=== PATIENT | female | born 1990 | race Caucasian/White ===

== ENCOUNTER 2018-04-06 15:02 | Emergency (ER) | payer SELFPAY ==
--- NOTE | 2018-04-06 15:56 | RAD REPORT ---
EXAM DESCRIPTION: Daniela Pandya (2 Views)04/06/2018 3:42 pm CLINICAL HISTORY: Cough COMPARISON: 2016 FINDINGS: The lungs appear clear of acute infiltrate. The heart is normal size IMPRESSION: No acute abnormalities displayed
[2018-04-06] MEDS ORDERED: AZITHROMYCIN 250 MG TAB ONE ×2 (16:07→16:09)
[2018-04-06] MEDS ORDERED: LIDOCAINE 1% MPF 2 ML AMPULE ONE (16:07)
[2018-04-06] MEDS ORDERED: CEFTRIAXONE 1000 MG/VIAL ONE (16:07)
--- NOTE | 2018-04-06 16:07 | ER ---
Nurse's Notes [facility] Name: India Pyle Age: 27 yrs Sex: Female : 1990 Arrival Date: 04/06/2018 Time: 15:06 Bed 28 Private MD: None, None Diagnosis: Cough;Bronchitis, not specified as acute or chronic;Fever, unspecified Presentation: 04/06 15:09 Presenting complaint: Patient states: cough x 2 days ago. Pt states "I started coughing aa5 up bloody mucus today". Transition of care: patient was not received from another setting of care. Onset of symptoms was March 2018. Risk Assessment: Do you want to hurt yourself or someone else? Patient reports no desire to harm self or others. Initial Sepsis Screen: Does the patient meet any 2 criteria? No. Patient's initial sepsis screen is negative. Does the patient have a suspected source of infection? No. Patient's initial sepsis screen is negative. Care prior to arrival: None. 15:09 Method Of Arrival: Ambulatory aa5 15:09 Acuity: FAVIO 3 aa5 Triage Assessment: 15:15 General: Appears in no apparent distress. Behavior is calm, cooperative, appropriate kr2 for age. 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 - Social history:: Smoking status: Patient/guardian denies using tobacco. - Ebola Screening: : No symptoms or risks identified at this time. Screenin:11 Tuberculosis screening: Never had TB. Possible symptoms: recent night sweats, recent aa5 bloody sputum. 15:15 Abuse screen: Denies threats or abuse. Denies injuries from another. Nutritional kr2 screening: No deficits noted. Fall Risk None identified. Assessment: 15:15 General: Appears in no apparent distress. uncomfortable, well groomed, well developed, kr2 well nourished, Behavior is calm, cooperative, appropriate for age. Pain: Denies pain. Neuro: Level of Consciousness is awake, alert, obeys commands, Oriented to person, place, time, situation. Cardiovascular: Capillary refill < 3 seconds in bilateral fingers Patient's skin is warm and dry. Rhythm is regular. Respiratory: Reports cough that is productive, since 3 days ago Airway is patent Respiratory effort is even, unlabored, Respiratory pattern is regular, symmetrical, Breath sounds are clear bilaterally. GI: Abdomen is flat, non-distended, Bowel sounds present X 4 quads. Abd is soft and non tender X 4 quads. : Denies burning with urination. EENT: Nares are clear bilaterally Oral mucosa is moist. Reports nasal congestion nasal discharge. Derm: Skin is intact, is healthy with good turgor, Skin is pink, warm \\T\\ dry. Musculoskeletal: Circulation, motion, and sensation intact. 16:15 Reassessment: Patient appears in no apparent distress at this time. Patient and/or kr2 family updated on plan of care and expected duration. Pain level reassessed. Patient is alert, oriented x 3, equal unlabored respirations, skin warm/dry/pink. Patient denies pain at this time. Vital Signs: 15:10 BP 107 / 79; Pulse 97; Resp 18 S; Temp 99.5(O); Pulse Ox 98% on R/A; Weight 67.13 kg aa5 (R); Height 5 ft. 0 in. (152.40 cm) (R); Pain 0/10; 16:00 BP 110 / 80; Pulse 90; Resp 17; Pulse Ox 100% ; kr2 15:10 Body Mass Index 28.90 (67.13 kg, 152.40 cm) aa5 ED Course: 15:06 Patient arrived in ED. sb2 15:06 None, None is Private Physician. sb2 15:09 Arm band placed on. aa5 15:10 Triage completed. aa5 15:15 Patient has correct armband on for positive identification. Bed in low position. Call kr2 light in reach. Side rails up X 1. Adult w/ patient. Pulse ox on. NIBP on. Door closed. Pillow given. Head of bed elevated. 15:27 Julian Storey MD is Attending Physician. oliver 15:38 Patient moved to radiology via wheelchair. sg4 15:40 X-ray completed. Patient tolerated procedure well. sg4 15:41 Chest Pa And Lat (2 Views) XRAY In Process Unspecified. EDMS 15:42 Patient taken to an exam room, Patient moved back from radiology. sg4 16:20 Denia Prasad, RN is Primary Nurse. kr2 16:20 No provider procedures requiring assistance completed. Patient did not have IV access kr2 during this emergency room visit. Administered Medications: 16:07 Drug: Zithromax 500 mg Route: PO; kr2 16:20 Follow up: Response: Medication administered at discharge. kr2 16:11 Drug: Rocephin (cefTRIAXone) 1 grams Route: IM; Site: left gluteus; kr2 16:25 Follow up: Response: No adverse reaction kr2 Outcome: 15:15 Discharged to home ambulatory, with family. kr2 15:15 Condition: good 15:15 Discharge instructions given to patient, Instructed on discharge instructions, follow up and referral plans. medication usage, Demonstrated understanding of instructions, follow-up care, medications, Prescriptions given X 2. 16:06 Discharge ordered by . oliver 16:25 Patient left the ED. kr2 Signatures: Dispatcher [employer] EDMS Julian Storey MD MD cha Calderon, Audri, RN RN aa5 Denia Prasad, RN RN kr2 Swathi Becker2 Mindy Sherwood sg4
--- NOTE | 2018-04-06 16:07 | EDPHYS ---
Physician Documentation [facility] Name: India Pyle Age: 27 yrs Sex: Female : 1990 Arrival Date: 04/06/2018 Time: 15:06 Bed 28 Private MD: None, None ED Physician Julian Storey HPI: 04/06 16:00 This 27 yrs old Female presents to ER via Ambulatory with complaints of oliver BLOODY MUCOUS. 16:00 The patient or guardian reports cough, described as mild. Onset: The symptoms/episode oliver began/occurred 3 day(s) ago. Severity of symptoms: At their worst the symptoms were mild, in the emergency department the symptoms are unchanged. Modifying factors: The symptoms are alleviated by. Associated signs and symptoms: The patient has no apparent associated signs or symptoms. The patient has experienced similar episodes in the past, a few times. 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 - Social history:: Smoking status: Patient/guardian denies using tobacco. - Ebola Screening: : No symptoms or risks identified at this time. ROS: 16:01 Constitutional: Negative for fever, chills, and weight loss, Eyes: Negative for injury, oliver pain, redness, and discharge, ENT: Negative for injury, pain, and discharge, Neck: Negative for injury, pain, and swelling, Cardiovascular: Negative for chest pain, palpitations, and edema, Abdomen/GI: Negative for abdominal pain, nausea, vomiting, diarrhea, and constipation, Back: Negative for injury and pain, : Negative for injury, bleeding, discharge, and swelling, MS/Extremity: Negative for injury and deformity, Skin: Negative for injury, rash, and discoloration, Neuro: Negative for headache, weakness, numbness, tingling, and seizure, Psych: Negative for depression, anxiety, suicide ideation, homicidal ideation, and hallucinations, Allergy/Immunology: Negative for hives, rash, and allergies, Endocrine: Negative for neck swelling, polydipsia, polyuria, polyphagia, and marked weight changes, Hematologic/Lymphatic: Negative for swollen nodes, abnormal bleeding, and unusual bruising. 16:01 Respiratory: Positive for cough, with rust-colored sputum. Exam: 16:01 Constitutional: This is a well developed, well nourished patient who is awake, alert, oliver and in no acute distress. Head/Face: Normocephalic, atraumatic. Eyes: Pupils equal round and reactive to light, extra-ocular motions intact. Lids and lashes normal. Conjunctiva and sclera are non-icteric and not injected. Cornea within normal limits. Periorbital areas with no swelling, redness, or edema. ENT: Nares patent. No nasal discharge, no septal abnormalities noted. Tympanic membranes are normal and external auditory canals are clear. Oropharynx with no redness, swelling, or masses, exudates, or evidence of obstruction, uvula midline. Mucous membranes moist. Neck: Trachea midline, no thyromegaly or masses palpated, and no cervical lymphadenopathy. Supple, full range of motion without nuchal rigidity, or vertebral point tenderness. No Meningismus. Chest/axilla: Normal chest wall appearance and motion. Nontender with no deformity. No lesions are appreciated. Cardiovascular: Regular rate and rhythm with a normal S1 and S2. No gallops, murmurs, or rubs. Normal PMI, no JVD. No pulse deficits. Abdomen/GI: Soft, non-tender, with normal bowel sounds. No distension or tympany. No guarding or rebound. No evidence of tenderness throughout. Back: No spinal tenderness. No costovertebral tenderness. Full range of motion. Female : Normal external genitalia. Skin: Warm, dry with normal turgor. Normal color with no rashes, no lesions, and no evidence of cellulitis. MS/ Extremity: Pulses equal, no cyanosis. Neurovascular intact. Full, normal range of motion. Neuro: Awake and alert, GCS 15, oriented to person, place, time, and situation. Cranial nerves II-XII grossly intact. Motor strength 5/5 in all extremities. Sensory grossly intact. Cerebellar exam normal. Normal gait. Psych: Awake, alert, with orientation to person, place and time. Behavior, mood, and affect are within normal limits. 16:01 Respiratory: the patient does not display signs of respiratory distress, Respirations: normal, Breath sounds: rhonchi, that are mild, are scattered. Vital Signs: 15:10 BP 107 / 79; Pulse 97; Resp 18 S; Temp 99.5(O); Pulse Ox 98% on R/A; Weight 67.13 kg aa5 (R); Height 5 ft. 0 in. (152.40 cm) (R); Pain 0/10; 16:00 BP 110 / 80; Pulse 90; Resp 17; Pulse Ox 100% ; kr2 15:10 Body Mass Index 28.90 (67.13 kg, 152.40 cm) aa5 MDM: 15:27 Patient medically screened. [facility] 16:01 Data reviewed: vital signs, nurses notes, radiologic studies, plain films. [facility] 04/06 15:28 Order name: Influenza Screen (a \T\ B) [facility] 04/06 15:27 Order name: Chest Pa And Lat (2 Views) XRAY [facility] Administered Medications: 16:07 Drug: Zithromax 500 mg Route: PO; kr2 16:20 Follow up: Response: Medication administered at discharge. 2 16:11 Drug: Rocephin (cefTRIAXone) 1 grams Route: IM; Site: left gluteus; kr2 16:25 Follow up: Response: No adverse reaction 2 Disposition: 04/06/18 16:06 Discharged to Home. Impression: Cough, Bronchitis, not specified as acute or chronic, Fever, unspecified. - Condition is Stable. - Discharge Instructions: Acute Bronchitis, Adult, Fever, Adult, Upper Respiratory Infection, Adult, [id number], Cough, Adult, [id number]-Frsh, Cough, Adult. - Prescriptions for Bromfed DM 2- 30-10 mg/5 mL Oral syrup - take 10 milliliter by ORAL route every 6 hours; 160 milliliter. Zithromax 500 mg Oral Tablet - take 1 tablet by ORAL route once daily for 4 days; 4 tablet. - Medication Reconciliation Form, Thank You Letter, Antibiotic Education, Prescription Opioid Use form. - Follow up: Private Physician; When: 2 - 3 days; Reason: Recheck today's complaints, Continuance of care, Re-evaluation by your physician. - Problem is new. - Symptoms have improved. Signatures: Dispatcher [employer] Julian Mujica MD MD cha Calderon, Audri RN RN aa5 Denia Prasad RN RN kr2 Corrections: (The following items were deleted from the chart) 16:25 16:06 04/06/2018 16:06 Discharged to Home. Impression: Cough; Bronchitis, not specified kr2 as acute or chronic; Fever, unspecified. Condition is Stable. Forms are Medication Reconciliation Form, Thank You Letter, Antibiotic Education, Prescription Opioid Use. Follow up: Private Physician; When: 2 - 3 days; Reason: Recheck today's complaints, Continuance of care, Re-evaluation by your physician. Problem is new. Symptoms have improved. oliver
== END 2018-04-06 16:25 | disposition home or self-care (01) ==
LOC: ER 15:02
DX: J40 Bronchitis, not specified as acute or chronic (principal)
CPT/HCPCS: 71046; 87804; 96372; 99284; J2001

== ENCOUNTER 2018-05-30 09:54 | Emergency (ER) | payer SELFPAY ==
--- NOTE | 2018-05-30 12:20 | RAD REPORT ---
EXAM DESCRIPTION: RAD - C Spine Ap/Lat - 05/30/2018 12:15 pm CLINICAL HISTORY: PAIN Radiculopathy COMPARISON: No comparisons FINDINGS: Cervical bodies are normal in height and alignment.No fracture or acute bony process seen. Disc thinning with small endplate osteophytes present in the lower cervical levels. No prevertebral soft tissue thickening or other suspicious soft tissue finding. IMPRESSION: Mild lower cervical spondylosis.
--- NOTE | 2018-05-30 12:46 | ER ---
Nurse's Notes [facility] Name: India Pyle Age: 27 yrs Sex: Female : 1990 Arrival Date: 05/30/2018 Time: 09:57 Bed 12 Private MD: None, None Diagnosis: Strain of muscle, fascia and tendon at neck level Presentation: 05/30 10:04 Presenting complaint: Patient states: i can barely move my neck started 2 days ago and hj its getting worse, its hard to swallow too; denies fever and chills; denies sore throat; denies trauma to the area;. Transition of care: patient was not received from another setting of care. Onset of symptoms was May 30, 2018. Risk Assessment: Do you want to hurt yourself or someone else? Patient reports no desire to harm self or others. Initial Sepsis Screen: Does the patient meet any 2 criteria? No. Patient's initial sepsis screen is negative. Does the patient have a suspected source of infection? No. Patient's initial sepsis screen is negative. Care prior to arrival: None. 10:04 Method Of Arrival: Ambulatory 10:04 Acuity: FAVIO 4 Triage Assessment: 10:06 General: Appears in no apparent distress. uncomfortable, Behavior is calm, cooperative, hj appropriate for age. Pain: Complains of pain in neck. 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 - Social history:: Smoking status: Patient/guardian denies using tobacco, Patient/guardian denies using alcohol. - Ebola Screening: : Patient negative for fever greater than or equal to 101.5 degrees Fahrenheit, and additional compatible Ebola Virus Disease symptoms Patient denies exposure to infectious person Patient denies travel to an Ebola-affected area in the 21 days before illness onset. Screenin:06 Abuse screen: Denies threats or abuse. Denies injuries from another. Nutritional hj screening: No deficits noted. Tuberculosis screening: No symptoms or risk factors identified. Fall Risk None identified. Assessment: 11:34 General: Appears in no apparent distress. Behavior is calm, cooperative. Pain: iw Complains of pain in neck. Neuro: Level of Consciousness is awake, alert, obeys commands, Oriented to person, place, time, Moves all extremities. Cardiovascular: Vital Signs: 10:06 BP 119 / 96; Pulse 75; Resp 18; Temp 98.1(O); Pulse Ox 99% on R/A; Weight 65.77 kg; hj Height 5 ft. 0 in. (152.40 cm); Pain 9/10; 10:06 Body Mass Index 28.32 (65.77 kg, 152.40 cm) hj ED Course: 09:57 Patient arrived in ED. mr 09:57 None, None is Private Physician. mr 10:05 Triage completed. hj 10:06 Arm band placed on left wrist. hj 10:08 Patient has correct armband on for positive identification. Bed in low position. Call hj light in reach. Side rails up X 1. Adult w/ patient. 11:15 Julian Rojas PA is PHCP. cp 11:16 Kareem Webb MD is Attending Physician. cp 11:33 Gracie Fuchs, RN is Primary Nurse. iw 12:19 XRAY C Spine Ap/lat: neck pain In Process Unspecified. EDMS 13:19 No provider procedures requiring assistance completed. Patient did not have IV access iw during this emergency room visit. Administered Medications: 13:00 Drug: TORadol 60 mg Route: IM; Site: right deltoid; iw Outcome: 12:46 Discharge ordered by MD. cp 13:19 Discharged to home ambulatory. iw 13:19 Condition: good 13:19 Discharge instructions given to patient, Instructed on discharge instructions, follow up and referral plans. medication usage, Demonstrated understanding of instructions, follow-up care, medications, Prescriptions given X 2. 13:20 Patient left the ED. iw Signatures: Dispatcher [employer] EDRI Karla Burgess mr Gracie Fuchs, RN RN Chito Li RN RN Julian Rojas PA PA cp Corrections: (The following items were deleted from the chart) 10:08 10:06 Pulse 75bpm; Resp 18bpm; Pulse Ox 99% RA; Temp 98.1F Oral; 65.77 kg; Height 5 ft. hj 0 in.; BMI: 28.3; Pain 9/10; hj
--- NOTE | 2018-05-30 12:46 | EDPHYS ---
Physician Documentation [facility] Name: India Pyle Age: 27 yrs Sex: Female : 1990 Arrival Date: 05/30/2018 Time: 09:57 Bed 12 Private MD: None, None ED Physician Kareem Webb HPI: 05/30 11:55 This 27 yrs old Female presents to ER via Ambulatory with complaints of Stiff cp Neck, Throat pain. 11:55 The patient or guardian complains of pain, that is acute. cp 11:55 The symptoms are located right upper posterior neck area. cp 11:55 Onset: The symptoms/episode began/occurred 2 day(s) ago. cp 11:55 Context: The neck injury/problem resulted from from unknown cause. Associated signs and cp symptoms: Pertinent negatives: fever, headache, numbness, tingling, weakness. The pain does not radiate. Modifying factors: the symptoms are aggravated by movement. 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 - Social history:: Smoking status: Patient/guardian denies using tobacco, Patient/guardian denies using alcohol. - Ebola Screening: : Patient negative for fever greater than or equal to 101.5 degrees Fahrenheit, and additional compatible Ebola Virus Disease symptoms Patient denies exposure to infectious person Patient denies travel to an Ebola-affected area in the 21 days before illness onset. ROS: 12:00 Constitutional: Negative for body aches, chills, fever, poor PO intake. cp 12:00 Eyes: Negative for injury, pain, redness, and discharge. cp 12:00 Neck: Positive for pain with movement, Negative for injury or acute deformity, swelling, bony tenderness. 12:00 Cardiovascular: Negative for chest pain, edema, palpitations. 12:00 Abdomen/GI: Negative for abdominal pain, nausea, vomiting, and diarrhea. 12:00 Skin: Negative for cellulitis, rash. 12:00 Neuro: Negative for dizziness, headache, numbness, tingling, weakness. 12:00 All other systems are negative. Exam: 12:10 Constitutional: The patient appears in no acute distress, alert, awake, non-toxic, well cp developed, well nourished. 12:10 Head/Face: Normocephalic, atraumatic. cp 12:10 Eyes: Periorbital structures: appear normal, Conjunctiva: normal, no exudate, no injection, Sclera: no appreciated abnormality, Lids and lashes: appear normal, bilaterally. 12:10 ENT: External ear(s): are unremarkable, Ear canal(s): are normal, clear, TM's: bulging, is not appreciated, bilaterally, dullness, bilaterally, erythema, is not appreciated, bilaterally, Nose: is normal, Mouth: is normal, Posterior pharynx: is normal, airway is patent, no erythema, no exudate, Tonsils: are normal in appearance, erythema, is not appreciated, exudate, is not appreciated, Voice: is normal. 12:10 Neck: External neck: tenderness, that is mild, of the occiput, ROM/movement: pain, that is mild, with rotation to the left, limited range of motion, that is mild, nuchal rigidity, is not appreciated, Lymph nodes: no appreciated lymphadenopathy. 12:10 Chest/axilla: Inspection: normal, Palpation: is normal, no crepitus, no tenderness. 12:10 Cardiovascular: Rate: normal, Rhythm: regular. 12:10 Respiratory: the patient does not display signs of respiratory distress, Respirations: normal, no use of accessory muscles, no retractions, no splinting, no tachypnea, labored breathing, is not present, Breath sounds: are clear throughout, no decreased breath sounds, no stridor, no wheezing. 12:10 Skin: cellulitis, is not appreciated, no rash present. 12:10 Neuro: Orientation: to person, place \T\ time. Mentation: is normal, Motor: moves all fours, strength is normal, Sensation: is normal. Vital Signs: 10:06 BP 119 / 96; Pulse 75; Resp 18; Temp 98.1(O); Pulse Ox 99% on R/A; Weight 65.77 kg; hj Height 5 ft. 0 in. (152.40 cm); Pain 9/10; 10:06 Body Mass Index 28.32 (65.77 kg, 152.40 cm) MDM: 11:16 Patient medically screened. cp 12:40 Differential diagnosis: Cervical Raiculopathy Cervical Spondylosis cervical strain, cp Spinal Cord Compression Spondylolisthesis Spondylosis subluxation, torticollis. 12:45 Data reviewed: vital signs, nurses notes, radiologic studies, plain films. cp 12:45 Test interpretation: by ED physician or midlevel provider: plain radiologic studies. cp Counseling: I had a detailed discussion with the patient and/or guardian regarding: the historical points, exam findings, and any diagnostic results supporting the discharge/admit diagnosis, radiology results, to return to the emergency department if symptoms worsen or persist or if there are any questions or concerns that arise at home. 05/30 11:49 Order name: XRAY C Spine Ap/lat: neck pain; Complete Time: 12:35 cp 05/30 11:49 Order name: Urine Test (obtain specimen); Complete Time: 13:02 cp 05/30 11:49 Order name: Urine Dipstick-Ancillary (obtain specimen); Complete Time: 13:02 cp Administered Medications: 13:00 Drug: TORadol 60 mg Route: IM; Site: right deltoid; iw Disposition: 15:10 Co-signature as Attending Physician, Kareem Webb MD. Disposition: 05/30/18 12:46 Discharged to Home. Impression: Strain of muscle, fascia and tendon at neck level. - Condition is Stable. - Discharge Instructions: Cervical Sprain. - Prescriptions for Cyclobenzaprine 10 mg Oral Tablet - take 1 tablet by ORAL route every 8 hours As needed no driving while taking medication; 20 tablet. Diclofenac Sodium 75 mg Oral Tablet, Delayed Release (E.C.) - take 1 tablet by ORAL route 2 times per day; 20 tablet. - Work release form, Medication Reconciliation Form, Thank You Letter, Antibiotic Education, Prescription Opioid Use form. - Follow up: Private Physician; When: 2 - 3 days; Reason: Recheck today's complaints. - Problem is new. - Symptoms have improved. Signatures: Dispatcher [employer] Gracie Roca RN RN iw Joaquin, Henry, RN RN hj Page, Corey, PA PA cp Starr, Gregory, MD MD Corrections: (The following items were deleted from the chart) 13:20 12:46 05/30/2018 12:46 Discharged to Home. Impression: Strain of muscle, fascia and iw tendon at neck level. Condition is Stable. Forms are Medication Reconciliation Form, Thank You Letter, Antibiotic Education, Prescription Opioid Use. Follow up: Private Physician; When: 2 - 3 days; Reason: Recheck today's complaints. Problem is new. Symptoms have improved. cp 05/31 13:05/30 13:05 Data reviewed: vital signs, nurses notes, radiologic studies, plain films, cp cp 05/31 13:11 05/30 13:05 Test interpretation: by ED physician or midlevel provider: plain radiologic cp studies, cp
[2018-05-30] MEDS ORDERED: KETOROLAC 30 MG/ML INJ ONE (13:09)
== END 2018-05-30 13:20 | disposition home or self-care (01) ==
LOC: ER 09:54
DX: S16.1XXA Strain of muscle, fascia and tendon at neck level, initial encounter (principal); F41.9 Anxiety disorder, unspecified; Z88.5 Allergy status to narcotic agent
CPT/HCPCS: 72040; 96372; 99283

== ENCOUNTER 2019-03-28 13:57 | Emergency (ER) | payer SELFPAY ==
--- OUTSIDE RECORDS SUMMARY | 2019-03-28 13:59 | XMS REPORT ---
:1990 Author Organization [facility] Address [address] [place] [address] [place] [id number] Care Team Providers Name Role Phone Unavailable Unavailable Unavailable Payers Payer Name Policy Type Policy Number Effective Date Expiration Date Problems This patient has no known problems. Allergies, Adverse Reactions, Alerts This patient has no known allergies or adverse reactions. Medications This patient has no known medications.
[2019-03-28] MEDS ORDERED: HYDROCODONE/CHLORPHEN 5 ML/OSYR ONE (14:37)
--- NOTE | 2019-03-28 15:09 | ER ---
Nurse's Notes [facility] Name: India Pyle Age: 28 yrs Sex: Female : 1990 Arrival Date: 03/28/2019 Time: 13:58 Bed 19 Private MD: Diagnosis: Acute bronchitis Presentation: 03/28 14:08 Presenting complaint: Patient states: Coughing, fever, body aches, and BARILLAS since jl7 yesterday. Transition of care: patient was not received from another setting of care. Onset of symptoms was March 27, 2019. Risk Assessment: Do you want to hurt yourself or someone else? Patient reports no desire to harm self or others. Initial Sepsis Screen: Does the patient meet any 2 criteria? HR > 90 bpm. Does the patient have a suspected source of infection? No. Patient's initial sepsis screen is negative. Care prior to arrival: None. 14:08 Method Of Arrival: Ambulatory [facility] 14:08 Acuity: FAVIO 4 jl7 Triage Assessment: 14:09 General: Appears in no apparent distress. uncomfortable, ill, Behavior is calm, jl7 cooperative, appropriate for age. Pain: Complains of pain in BARILLAS Pain currently is 5 out of 10 on a pain scale. 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 - Social history:: Smoking status: Patient/guardian denies using tobacco. - Ebola Screening: : No symptoms or risks identified at this time. Screenin:41 Abuse screen: Denies threats or abuse. Denies injuries from another. Nutritional bp screening: No deficits noted. Tuberculosis screening: No symptoms or risk factors identified. Fall Risk None identified. Assessment: 14:10 General: Appears in no apparent distress. comfortable, ill, Behavior is cooperative, bp appropriate for age, anxious. Pain: Complains of pain in THROAT. Neuro: No deficits noted. Cardiovascular: Rhythm is sinus tachycardia. Respiratory: No deficits noted. GI: No signs and/or symptoms were reported involving the gastrointestinal system. : No signs and/or symptoms were reported regarding the genitourinary system. EENT: No deficits noted. Derm: No deficits noted. Musculoskeletal: No deficits noted. 15:56 Reassessment: PT D/C HOME AMBULATORY WITH FAMILY, DX WITH BRONCHITIS. bp Vital Signs: 14:09 BP 118 / 78; Pulse 120; Resp 19 S; Temp 100.7(O); Pulse Ox 96% on R/A; Weight 65.77 kg jl7 (R); Height 5 ft. 0 in. (152.40 cm) (R); Pain 5/10; 15:12 BP 107 / 64; Pulse 106; Resp 18; Temp 100.2(TE); Pulse Ox 97% ; mh5 15:55 BP 100 / 63; Pulse 100; Resp 18; Temp 100.1; Pulse Ox 98% ; bp 14:09 Body Mass Index 28.32 (65.77 kg, 152.40 cm) jl7 ED Course: 13:58 Patient arrived in ED. as 14:09 Triage completed. jl7 14:09 Arm band placed on right wrist. jl7 14:15 Gerard Kaur, RN is Primary Nurse. bp 14:19 Fanta Durbin FNP-C is PHCP. snw 14:19 Julian Storey MD is Attending Physician. snw 14:41 Patient has correct armband on for positive identification. Bed in low position. Call bp light in reach. Side rails up X2. Adult w/ patient. 15:56 No provider procedures requiring assistance completed. Patient did not have IV access bp during this emergency room visit. Administered Medications: 14:35 Drug: Tussionex Pennkinetic ER 5 ml Route: PO; bp 15:44 Follow up: Response: Marked relief of symptoms bp 15:30 Drug: Zithromax 500 mg Route: PO; bp 15:45 Follow up: Response: No adverse reaction bp Outcome: 15:08 Discharge ordered by . snw 15:56 Discharged to home ambulatory, with family. bp 15:56 Condition: stable 15:56 Discharge instructions given to patient, Instructed on discharge instructions, follow up and referral plans. medication usage, Demonstrated understanding of instructions, follow-up care, medications, Prescriptions given X 4. 15:57 Patient left the ED. bp Signatures: Fanta Durbin FNP-C PATIENT REPRESENTATIVE-Csnw Yamileth Lanier Maria 5 Latrice Negron, RN RN jl7 Gerard Kaur RN RN bp
--- NOTE | 2019-03-28 15:09 | EDPHYS ---
Physician Documentation [facility] Name: India Pyle Age: 28 yrs Sex: Female : 1990 Arrival Date: 03/28/2019 Time: 13:58 Bed 19 Private MD: ED Physician Julian Storey HPI: 03/28 14:28 This 28 yrs old Female presents to ER via Ambulatory with complaints of Flu snw Symptoms, InQuicker. 14:28 The patient or guardian reports cough, described as moderate, flu symptoms, snw arthralgias, low-grade fever, myalgias. Onset: The symptoms/episode began/occurred suddenly. Modifying factors: The symptoms are alleviated by nothing. Associated signs and symptoms: Pertinent positives: sore throat, cough, fever, pt states she has had a cough since [place] that has never really gone away. Severity of symptoms: At their worst the symptoms were moderate in the emergency department the symptoms are unchanged. It is unknown whether or not the patient has had similar symptoms in the past. It is unknown whether or not the patient has recently seen a physician. 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 - Social history:: Smoking status: Patient/guardian denies using tobacco. - Ebola Screening: : No symptoms or risks identified at this time. ROS: 14:28 Eyes: Negative for injury, pain, redness, and discharge. snw 14:28 Neck: Negative for injury, pain, and swelling, Cardiovascular: Negative for chest pain, palpitations, and edema. 14:28 Abdomen/GI: Negative for abdominal pain, nausea, vomiting, diarrhea, and constipation, Back: Negative for injury and pain, : Negative for injury, bleeding, discharge, and swelling, MS/Extremity: Negative for injury and deformity, Skin: Negative for injury, rash, and discoloration, Neuro: Negative for headache, weakness, numbness, tingling, and seizure. 14:28 Constitutional: Positive for body aches, fatigue, fever, malaise, poor PO intake. 14:28 ENT: Positive for sore throat, cough, congestion, body aches. 14:28 Respiratory: Positive for cough. Exam: 14:32 Neck: Trachea midline, no thyromegaly or masses palpated, and no cervical snw lymphadenopathy. Supple, full range of motion without nuchal rigidity, or vertebral point tenderness. No Meningismus. Chest/axilla: Normal chest wall appearance and motion. Nontender with no deformity. No lesions are appreciated. 14:32 Abdomen/GI: Soft, non-tender, with normal bowel sounds. No distension or tympany. No guarding or rebound. No evidence of tenderness throughout. Back: No spinal tenderness. No costovertebral tenderness. Full range of motion. Skin: Warm, dry with normal turgor. Normal color with no rashes, no lesions, and no evidence of cellulitis. MS/ Extremity: Pulses equal, no cyanosis. Neurovascular intact. Full, normal range of motion. Neuro: Awake and alert, GCS 15, oriented to person, place, time, and situation. Cranial nerves II-XII grossly intact. Motor strength 5/5 in all extremities. Sensory grossly intact. Cerebellar exam normal. Normal gait. Psych: Awake, alert, with orientation to person, place and time. Behavior, mood, and affect are within normal limits. 14:32 Constitutional: The patient appears alert, awake, febrile. 14:32 Head/face: Exam is negative for 14:32 Eyes: Exam is negative for 14:32 ENT: External ear(s): Ear canal(s): TM's: Nose: Mouth: 14:32 Cardiovascular: Rate: tachycardic, Rhythm: regular, Heart sounds: normal, normal S1and S2. 14:32 Respiratory: the patient does not display signs of respiratory distress, Respirations: normal, shallow respirations, that is moderate, Breath sounds: Respiratory rate: bronchitic cough Vital Signs: 14:09 BP 118 / 78; Pulse 120; Resp 19 S; Temp 100.7(O); Pulse Ox 96% on R/A; Weight 65.77 kg jl7 (R); Height 5 ft. 0 in. (152.40 cm) (R); Pain 5/10; 15:12 BP 107 / 64; Pulse 106; Resp 18; Temp 100.2(TE); Pulse Ox 97% ; mh5 15:55 BP 100 / 63; Pulse 100; Resp 18; Temp 100.1; Pulse Ox 98% ; bp 14:09 Body Mass Index 28.32 (65.77 kg, 152.40 cm) jl7 MDM: 14:19 Patient medically screened. snw 15:09 Data reviewed: vital signs, nurses notes. Data interpreted: Pulse oximetry: on room air snw is 96 %. Interpretation: acceptable. Counseling: I had a detailed discussion with the patient and/or guardian regarding: the historical points, exam findings, and any diagnostic results supporting the discharge/admit diagnosis, lab results, the need for outpatient follow up, to return to the emergency department if symptoms worsen or persist or if there are any questions or concerns that arise at home. Special discussion: Based on the history and exam findings, there is no indication for further emergent testing or inpatient evaluation. I discussed with the patient/guardian the need to see the primary care provider for further evaluation of the symptoms. 03/28 14:19 Order name: Flu; Complete Time: 15:07 snw 03/28 14:19 Order name: Strep; Complete Time: 15:07 snw 03/28 14:24 Order name: PO challenge: crackers with cough med; Complete Time: 14:37 snw 03/28 15:06 Order name: Throat Culture EDMS Administered Medications: 14:35 Drug: Tussionex Pennkinetic ER 5 ml Route: PO; bp 15:44 Follow up: Response: Marked relief of symptoms bp 15:30 Drug: Zithromax 500 mg Route: PO; bp 15:45 Follow up: Response: No adverse reaction bp Disposition: 03/29 10:31 Co-signature as Attending Physician, Julian Storey MD I agree with the assessment and oliver plan of care. Disposition: 03/28/19 15:08 Discharged to Home. Impression: Acute bronchitis. - Condition is Stable. - Discharge Instructions: Acute Bronchitis, Adult, Fever, Adult, Cough, Adult, Rehydration, Adult. - Prescriptions for Tessalon Perles 100 mg Oral Capsule - take 1 capsule by ORAL route every 8 hours As needed; 15 capsule. Prednisone 20 mg Oral Tablet - take 2 tablet by ORAL route once daily for 5 days; 10 tablet. Zithromax 500 mg Oral Tablet - take 1 tablet by ORAL route once daily for 5 days; 5 tablet. Mobic 7.5 mg Oral Tablet - take 1 tablet by ORAL route every 12 hours take with food; 20 tablet. - Work release form, Medication Reconciliation Form, Thank You Letter, Antibiotic Education, Prescription Opioid Use form. - Follow up: Emergency Department; When: As needed; Reason: Worsening of condition. Follow up: Private Physician; When: 1 week; Reason: Recheck today's complaints, Continuance of care, Re-evaluation by your physician. Signatures: Dispatcher [employer] EDJulian Dobson, Fanta Gonzalez MD, cha, PROFESSOR OF PRACTICE-C PROFESSOR OF PRACTICE-Csnw Latrice Negron, RN RN jl7 Gerard Kaur RN RN bp Corrections: (The following items were deleted from the chart) 03/28 15:57 15:08 03/28/2019 15:08 Discharged to Home. Impression: Acute bronchitis. Condition is bp Stable. Forms are Medication Reconciliation Form, Thank You Letter, Antibiotic Education, Prescription Opioid Use. Follow up: Emergency Department; When: As needed; Reason: Worsening of condition. Follow up: Private Physician; When: 1 week; Reason: Recheck today's complaints, Continuance of care, Re-evaluation by your physician. snw
[2019-03-28] MEDS ORDERED: AZITHROMYCIN 250 MG TAB ONE (15:39)
[2019-03-28 16:18] VITALS: BP 100/63; TEMP 100.1; O2SAT 98
== END 2019-03-28 15:57 | disposition home or self-care (01) ==
LOC: ER 13:57
DX: J20.9 Acute bronchitis, unspecified (principal); F41.9 Anxiety disorder, unspecified; Z88.5 Allergy status to narcotic agent
CPT/HCPCS: 87070; 87081; 87804; 99284

== ENCOUNTER 2019-04-02 12:37 | Emergency (ER) | payer SELFPAY ==
--- OUTSIDE RECORDS SUMMARY | 2019-04-02 12:40 | XMS REPORT ---
:1990 [facility] [address] [place] [address] Care Team Providers Name Role Phone Unavailable Unavailable Unavailable Payers Payer Name Policy Type Policy Number Effective Date Expiration Date Problems This patient has no known problems. Allergies, Adverse Reactions, Alerts This patient has no known allergies or adverse reactions. Medications This patient has no known medications.
[2019-04-02] MEDS ORDERED: NA CHLORIDE 0.9% 2,000 ML ONE (13:31)
[2019-04-02] MEDS ORDERED: ONDANSETRON 4 MG/2 ML VIAL ONE (13:31)
--- NOTE | 2019-04-02 14:41 | ER ---
Nurse's Notes [facility] Name: India Pyle Age: 28 yrs Sex: Female : 1990 Arrival Date: 04/02/2019 Time: 12:40 Bed 15 Private MD: Diagnosis: Nausea with vomiting, unspecified;Dehydration Presentation: 04/02 12:53 Presenting complaint: Patient states: diagnosed with bronchitis on Friday , not able to iw eat, not getting better, had diarrhea, feels dehydrated and dizzy. Transition of care: patient was not received from another setting of care. Onset of symptoms was April 02, 2019. Risk Assessment: Do you want to hurt yourself or someone else? Patient reports no desire to harm self or others. Initial Sepsis Screen: Does the patient meet any 2 criteria? No. Patient's initial sepsis screen is negative. Does the patient have a suspected source of infection? No. Patient's initial sepsis screen is negative. Care prior to arrival: None. 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 - Social history:: Smoking status: Patient/guardian denies using tobacco. - Ebola Screening: : Patient negative for fever greater than or equal to 101.5 degrees Fahrenheit, and additional compatible Ebola Virus Disease symptoms Patient denies exposure to infectious person Patient denies travel to an Ebola-affected area in the 21 days before illness onset No symptoms or risks identified at this time. - Family history:: not pertinent. - Hospitalizations: : No recent hospitalization is reported. Screenin:35 Abuse screen: Denies threats or abuse. Denies injuries from another. Nutritional ca1 screening: No deficits noted. Tuberculosis screening: No symptoms or risk factors identified. Fall Risk IV access (20 points). Assessment: 13:35 General: Appears in no apparent distress. comfortable, Behavior is calm, cooperative, ca1 appropriate for age. Pain: Denies pain. Neuro: Level of Consciousness is awake, alert, obeys commands, Oriented to person, place, time, situation, Appropriate for age. Cardiovascular: Heart tones S1 S2 present Capillary refill < 3 seconds Patient's skin is warm and dry. Respiratory: Airway is patent Respiratory effort is even, unlabored, Respiratory pattern is regular, symmetrical, Breath sounds are clear bilaterally. GI: Abdomen is flat, non-distended, Bowel sounds present X 4 quads. Abd is soft and non tender X 4 quads. Reports nausea. : No deficits noted. No signs and/or symptoms were reported regarding the genitourinary system. EENT: No deficits noted. No signs and/or symptoms were reported regarding the EENT system. Derm: Skin is intact, is healthy with good turgor, Skin is pink, warm \T\ dry. Musculoskeletal: Circulation, motion, and sensation intact. Capillary refill < 3 seconds, Range of motion: intact in all extremities. 14:49 Reassessment: Patient appears in no apparent distress at this time. Patient is alert, ca1 oriented x 3, equal unlabored respirations, skin warm/dry/pink. Vital Signs: 12:54 BP 123 / 86; Pulse 78; Resp 16; Temp 98.1(O); Pulse Ox 98% on R/A; Weight 65.77 kg; iw Height 5 ft. 0 in. (152.40 cm); 14:49 BP 106 / 76; Pulse 73; Resp 17 S; Pulse Ox 100% on R/A; ca1 12:54 Body Mass Index 28.32 (65.77 kg, 152.40 cm) iw ED Course: 12:40 Patient arrived in ED. mr 12:54 Triage completed. iw 12:54 Arm band placed on. iw 13:18 Lionel Montoya MD is Attending Physician. rn 13:28 Michelle Piña RN is Primary Nurse. ca1 13:35 Patient has correct armband on for positive identification. Bed in low position. Call ca1 light in reach. Side rails up X 1. Pulse ox on. NIBP on. Warm blanket given. 13:35 No provider procedures requiring assistance completed. Inserted saline lock: 22 gauge ca1 in right antecubital area, using aseptic technique. 15:11 IV discontinued, intact, bleeding controlled, No redness/swelling at site. Pressure ca1 dressing applied. Administered Medications: 13:35 Drug: Zofran 4 mg Route: IVP; Site: right antecubital; ca1 15:00 Follow up: Response: No adverse reaction; Nausea is decreased ca1 13:35 Drug: NS 0.9% 1000 ml Route: IV; Rate: 1000 ml; Site: right antecubital; ca1 15:12 Follow up: Response: No adverse reaction; IV Status: Completed infusion; IV Intake: ca1 1000ml 13:38 Drug: NS 0.9% 1000 ml Route: IV; Rate: 1000 ml; Site: right antecubital; ca1 14:35 Follow up: Response: No adverse reaction; IV Status: Completed infusion; IV Intake: ca1 1000ml Intake: 14:35 IV: 1000ml; Total: 1000ml. ca1 15:12 IV: 1000ml; Total: 2000ml. ca1 Outcome: 14:40 Discharge ordered by . rn 15:11 Discharged to home ambulatory, with significant other. ca1 15:11 Condition: stable 15:11 Discharge instructions given to patient, Instructed on discharge instructions, follow up and referral plans. medication usage, Demonstrated understanding of instructions, follow-up care, medications, Prescriptions given X 1. 15:12 Patient left the ED. ca1 Signatures: Karla Burgess Irene, RN RN iw Lionel Montoya MD MD rn Acob, THOMAS Martinez RN ca1 Corrections: (The following items were deleted from the chart) 12:56 12:54 BP 123 / 86; Pulse 78bpm; Resp 16bpm; Pulse Ox 98% RA; 65.77 kg; Height 5 ft. 0 iw in.; BMI: 28.3; iw
--- NOTE | 2019-04-02 14:41 | EDPHYS ---
Physician Documentation [facility] Name: India Pyle Age: 28 yrs Sex: Female : 1990 Arrival Date: 04/02/2019 Time: 12:40 Bed 15 Private MD: ED Physician Lionel Montoya HPI: 04/02 13:26 This 28 yrs old Female presents to ER via Ambulatory with complaints of rn Nausea. 13:26 The patient presents to the emergency department with nausea, vomiting, diarrhea. rn 13:26 Onset: The symptoms/episode began/occurred 1 week(s) ago. Possible causes: unknown. The rn symptoms are aggravated by nothing. The symptoms are alleviated by nothing. Severity of symptoms: At their worst the symptoms were moderate in the emergency department the symptoms are unchanged. The patient has not experienced similar symptoms in the past. Reports nausea/vomiting/diarrhea for 1 week, also with cough/congestion, seen here a few days ago, diagnosed with bronchitis, discharged with zithromax, steroids. Denies abd pain. Has had tubal ligation. . 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 - Social history:: Smoking status: Patient/guardian denies using tobacco. - Ebola Screening: : Patient negative for fever greater than or equal to 101.5 degrees Fahrenheit, and additional compatible Ebola Virus Disease symptoms Patient denies exposure to infectious person Patient denies travel to an Ebola-affected area in the 21 days before illness onset No symptoms or risks identified at this time. - Family history:: not pertinent. - Hospitalizations: : No recent hospitalization is reported. ROS: 13:26 Constitutional: Negative for fever, chills, and weight loss, Eyes: Negative for injury, rn pain, redness, and discharge, Neck: Negative for injury, pain, and swelling, Cardiovascular: Negative for chest pain, palpitations, and edema, Respiratory: Negative for shortness of breath, cough, wheezing, and pleuritic chest pain, Abdomen/GI: Negative for abdominal pain, and constipation, MS/Extremity: Negative for injury and deformity, Skin: Negative for injury, rash, and discoloration, Neuro: Negative for headache, numbness, tingling, and seizure. Exam: 13:26 Constitutional: This is a well developed, well nourished patient who is awake, alert, rn and in no acute distress. Head/Face: Normocephalic, atraumatic. ENT: dry MM Neck: Trachea midline, no thyromegaly or masses palpated, and no cervical lymphadenopathy. Supple, full range of motion without nuchal rigidity, or vertebral point tenderness. No Meningismus. Cardiovascular: Regular rate and rhythm. No pulse deficits. Respiratory: No increased work of breathing, no retractions or nasal flaring. Abdomen/GI: soft, non-tender MS/ Extremity: Pulses equal, no cyanosis. Neurovascular intact. Full, normal range of motion. Equal circumference. Neuro: Awake and alert, GCS 15, oriented to person, place, time, and situation. Cranial nerves II-XII grossly intact. Motor strength 5/5 in all extremities. Sensory grossly intact. Cerebellar exam normal. Vital Signs: 12:54 BP 123 / 86; Pulse 78; Resp 16; Temp 98.1(O); Pulse Ox 98% on R/A; Weight 65.77 kg; iw Height 5 ft. 0 in. (152.40 cm); 14:49 BP 106 / 76; Pulse 73; Resp 17 S; Pulse Ox 100% on R/A; ca1 12:54 Body Mass Index 28.32 (65.77 kg, 152.40 cm) iw MDM: 13:18 Patient medically screened. rn 14:38 Differential diagnosis: viral gastroenteritis, gastroenteritis. Data reviewed: vital rn signs, nurses notes, lab test result(s), and as a result, I will discharge patient. Counseling: I had a detailed discussion with the patient and/or guardian regarding: the historical points, exam findings, and any diagnostic results supporting the discharge/admit diagnosis, the need for outpatient follow up, to return to the emergency department if symptoms worsen or persist or if there are any questions or concerns that arise at home. Response to treatment: the patient's symptoms have markedly improved after treatment. Special discussion: I discussed with the patient/guardian in detail that at this point there is no indication for admission to the hospital. It is understood, however, that if the symptoms persist or worsen the patient needs to return immediately for re-evaluation. ED course: Most likely viral syndrome, flu neg last time, has had tubal ligation, will dc home with prn zofran for hydration and viral illness. . 04/02 13:25 Order name: IV Start; Complete Time: 13:37 rn Administered Medications: 13:35 Drug: Zofran 4 mg Route: IVP; Site: right antecubital; ca1 15:00 Follow up: Response: No adverse reaction; Nausea is decreased ca1 13:35 Drug: NS 0.9% 1000 ml Route: IV; Rate: 1000 ml; Site: right antecubital; ca1 15:12 Follow up: Response: No adverse reaction; IV Status: Completed infusion; IV Intake: ca1 1000ml 13:38 Drug: NS 0.9% 1000 ml Route: IV; Rate: 1000 ml; Site: right antecubital; ca1 14:35 Follow up: Response: No adverse reaction; IV Status: Completed infusion; IV Intake: ca1 1000ml Disposition: 04/02/19 14:40 Discharged to Home. Impression: Nausea with vomiting, unspecified, Dehydration. - Condition is Stable. - Discharge Instructions: Dehydration, Adult, Nausea and Vomiting, Adult. - Prescriptions for Zofran ODT 4 mg Oral tablet,disintegrating - place 1 tablet by TRANSLINGUAL route every 8 hours As needed; 20 tablet. - Medication Reconciliation Form, Thank You Letter, Antibiotic Education, Prescription Opioid Use form. - Follow up: Private Physician; When: As needed; Reason: Recheck today's complaints, Re-evaluation by your physician. - Problem is new. - Symptoms have improved. Signatures: Gracie Fuchs RN RN iw Lionel Montoya MD MD rn Acob, THOMAS Martinez RN ca1 Corrections: (The following items were deleted from the chart) 15:12 14:40 04/02/2019 14:40 Discharged to Home. Impression: Nausea with vomiting, ca1 unspecified; Dehydration. Condition is Stable. Forms are Medication Reconciliation Form, Thank You Letter, Antibiotic Education, Prescription Opioid Use. Follow up: Private Physician; When: As needed; Reason: Recheck today's complaints, Re-evaluation by your physician. Problem is new. Symptoms have improved. rn
[2019-04-02 15:34] VITALS: TEMP 98.1
[2019-04-02 15:35] VITALS: BP 106/76; O2SAT 100
== END 2019-04-02 15:12 | disposition home or self-care (01) ==
LOC: ER 12:37
DX: R11.2 Nausea with vomiting, unspecified (principal); E86.0 Dehydration; F41.9 Anxiety disorder, unspecified; Z88.6 Allergy status to analgesic agent
CPT/HCPCS: 96361; 96374; 99284; J2405; J7030

== ENCOUNTER 2019-11-17 05:28 | Emergency (ER) | payer SELFPAY ==
--- OUTSIDE RECORDS SUMMARY | 2019-11-17 05:30 | XMS REPORT | Continuity of Care Document ---
:1990 Author Organization [facility] t Address [address] [place] [address] Care Team Providers Name Role Phone Lab, Fam Pob I Attending Clinician Unavailable Payers Payer Name Policy Type Policy Number Effective Date Expiration Date S ource Problems This patient has no known problems. Allergies, Adverse Reactions, Alerts This patient has no known allergies or adverse reactions. Medications This patient has no known medications. Procedures This patient has no known procedures. Encounters Start End Encounter Admission Attending Care Care Encounter Source Date/Time Date/Time Type Type Clinicians Facility Department ID 2019-10-12 2019-10-12 Laboratory Lab, Adc [facility] [id number] 17:22:28 17:42:28 Only Fam Pob I [facility] [id number] [place] [id number] [facility] [id number] [address] Results This patient has no known results.
--- OUTSIDE RECORDS SUMMARY | 2019-11-17 05:30 | XMS REPORT | Summary of Care ---
:1990 Author Organization [facility] Address [address] [place] [id number] Care Team Providers Name Role Phone Kareem Barraza MD Primary Care Provider Unavailable Reason for Visit Reason Comments Exposure Encounter Details Date Type Department Care Team Description 10/12/2019 Laboratory Only [facility] Family Des Bulmaro og, VETERINARY RADIOLOGIST [address] [place] [address] Exposure to Medicine - [facility], Adc Fam Pob I SARS-associated [address] [facility] coronaviru s ([address] Drive Dx) [place] [address] Allergies Not on Filedocumented as of this encounter (statuses as of 10/12/2019) Medications Not on filedocumented as of this encounter (statuses as of 10/12/2019) Active Problems Not on filedocumented as of this encounter (statuses as of 10/12/2019) Social History Tobacco Use Types Packs/Day Years Used Date Never Assessed Sex Assigned at Date Recorded Not on file Job Start Date Occupation Industry Not on file Not on file Not on file Travel History Travel Start Travel End No recent travel history available. COVID-19 Exposure Response Date Recorded In the last month, have you been in contact with Yes 10/12/2019 5:24 PM CDT someone who was confirmed or suspected to have Coronavirus / COVID-19? documented as of this encounter Last Filed Vital Signs Not on filedocumented in this encounter Plan of Treatment Name Type Priority Associated Diagnoses Order S chedule COVID-19 (PCR MOLECULAR LAB Routine Exposure to Expe cted: 10/12/2019, TESTING) SARS-associated Expires: coronavirus Health Maintenance Due Date Last Done Comments VARICELLA VACCINES (1 of 2 - 1989 2-dose childhood series) DTaP,Tdap,and Td Vaccines (1 - 12/06/1999 Tdap) Depression Screening 2000 PAP SMEAR 2009 INFLUENZA VACCINE (Season Ended) 2019 PNEUMOCOCCAL 0-64 YEARS COMBINED Aged Out No longer eligible based on SERIES patient's age to complete this topic documented as of this encounter Results Not on filedocumented in this encounter Visit Diagnoses Diagnosis Exposure to SARS-associated coronavirus - Primary documented in this encounter
[2019-11-17] MEDS ORDERED: NA CHLORIDE 0.9% 1,000 ML ONE (05:56)
[2019-11-17] MEDS ORDERED: ACETAMINOPHEN 325 MG TABLET ONE (06:29)
--- NOTE | 2019-11-17 06:36 | ER ---
Nurse's Notes [facility] Name: India Pyle Age: 28 yrs Sex: Female : 1990 Arrival Date: 11/17/2019 Time: 05:32 Bed 5 Private MD: Gerard Heredia Diagnosis: Dehydration;Malaise and fatigue Presentation: 11/16 05:48 Chief complaint: Patient states: Treated for sinus infection and had a stomach bug last lp1 week; states attempted to drink water and Gatorade but feels dehydrated; complaint of feeling weak, dizzy, migraine x 2 days. Coronavirus screen: Client denies travel out of the [place] in the last 14 days. At this time, the client does not indicate any symptoms associated with coronavirus-19. Coronavirus screen: headache. Ebola Screen:. Initial Sepsis Screen: Does the patient meet any 2 criteria? No. Patient's initial sepsis screen is negative. Does the patient have a suspected source of infection? No. Patient's initial sepsis screen is negative. Risk Assessment: Do you want to hurt yourself or someone else? Patient reports no desire to harm self or others. Onset of symptoms was November 17, 2019. 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 - Family history:: not pertinent. - Social history:: Smoking status: Patient denies any tobacco usage or history of. - Hospitalizations: : No recent hospitalization is reported. Screenin:51 Abuse screen: Denies threats or abuse. Denies injuries from another. Nutritional lp1 screening: No deficits noted. Tuberculosis screening: No symptoms or risk factors identified. Fall Risk None identified. Assessment: 05:50 Reassessment: In talking with Dr. Montoya, patient states refusal to have COVID swab lp1 performed at this time. 05:56 General: Appears in no apparent distress. uncomfortable, Behavior is calm, cooperative, jd3 appropriate for age, Reports fatigue for 1-2 days. Pain: Complains of pain in head Quality of pain is described as aching, pressure. Neuro: Level of Consciousness is awake, alert, obeys commands, Oriented to person, place, time, situation. Cardiovascular: Denies chest pain, Capillary refill < 3 seconds Patient's skin is warm and dry. Respiratory: Airway is patent Respiratory effort is even, unlabored, Respiratory pattern is regular, symmetrical, Denies cough, shortness of breath. GI: Abdomen is flat, non-distended, Abd is soft and non tender X 4 quads. Patient currently denies diarrhea, nausea, vomiting. : No signs and/or symptoms were reported regarding the genitourinary system. EENT: No signs and/or symptoms were reported regarding the EENT system. Derm: Skin is intact, Skin is dry, Skin is normal, Skin temperature is warm. Musculoskeletal: Circulation, motion, and sensation intact. Range of motion: intact in all extremities. 06:24 Reassessment: Patient appears in no apparent distress at this time. No changes from jd3 previously documented assessment. Patient and/or family updated on plan of care and expected duration. Pain level reassessed. Patient is alert, oriented x 3, equal unlabored respirations, skin warm/dry/pink. pt requesting for medication to help with headache, provider notified, new orders received. 06:56 Reassessment: Patient appears in no apparent distress at this time. Patient and/or jd3 family updated on plan of care and expected duration. Pain level reassessed. Patient is alert, oriented x 3, equal unlabored respirations, skin warm/dry/pink. even and steady gait upon discharge Patient states feeling better. Vital Signs: 05:48 BP 115 / 80; Pulse 81; Resp 18; Temp 98.4(O); Pulse Ox 99% on R/A; Weight 69.4 kg (R); lp1 Height 5 ft. 0 in. (152.40 cm); Pain 0/10; 06:25 BP 114 / 77; Pulse 85; Resp 16 S; Pulse Ox 100% on R/A; jd3 05:48 Body Mass Index 29.88 (69.40 kg, 152.40 cm) lp1 ED Course: 05:32 Patient arrived in ED. es 05:32 Gerard Heredia MD is Private Physician. es 05:37 Lionel Montoya MD is Attending Physician. rn 05:46 Mike Joel RN is Primary Nurse. jd3 05:50 Triage completed. lp1 05:51 Patient has correct armband on for positive identification. lp1 05:51 Arm band placed on. lp1 05:56 Inserted saline lock: 20 gauge in right antecubital area, using aseptic technique. jd3 06:55 No provider procedures requiring assistance completed. IV discontinued, intact, jd3 bleeding controlled, No redness/swelling at site. Pressure dressing applied. Administered Medications: 05:54 Drug: NS 0.9% 1000 ml Route: IV; Rate: 1000 ml; Site: right antecubital; jd3 06:53 Follow up: Response: No adverse reaction; IV Status: Completed infusion; IV Intake: jd3 1000ml 06:21 Drug: Tylenol 650 mg Route: PO; jd3 06:58 Follow up: Response: No adverse reaction jd3 Intake: 06:53 IV: 1000ml; Total: 1000ml. jd3 Outcome: 06:35 Discharge ordered by MD. rn 06:56 Discharged to home ambulatory. jd3 06:56 Condition: stable 06:56 Discharge instructions given to patient, Instructed on discharge instructions, follow up and referral plans. Demonstrated understanding of instructions, follow-up care. 06:57 Patient left the ED. jd3 Addendum: 11/18/2019 15:17 Addendum: COVID-19 Result: Negative result given to RN to notify pt. Notified pt of h b negative COVID 19 swab results. Pt advised that even with a negative test result they should remain in isolation until symptom free for 3 days without medication. Pt also advised to return to the ED for worsening symptoms. Signatures: Ce Jarrett Roman, MD MD rn Pena, Laura, RN RN lp1 Autumn Bae RN RN Mike Joel RN RN jd3 Chapito Oh RN RN mg2 Corrections: (The following items were deleted from the chart) 11/16 05:53 05:48 BP 115 / 80; Pulse 81bpm; Resp 18bpm; Pulse Ox 99% RA; 69.4 kg Reported; Height 5 lp1 ft. 0 in.; BMI: 29.8; Pain 0/10; lp1 05:57 05:56 General: Appears in no apparent distress. uncomfortable, Behavior is calm, jd3 cooperative, appropriate for age, Reports fatigue for 1-2 days, mg2 05:57 05:56 Pain: Complains of pain in head Quality of pain is described as aching, pressure, jd3 mg2 05:57 05:56 Neuro: Level of Consciousness is awake, alert, obeys commands, Oriented to jd3 person, place, time, situation, mg2 05:57 05:56 Cardiovascular: Denies chest pain, Capillary refill < 3 seconds Patient's skin is jd3 warm and dry. mg2 05:57 05:56 Respiratory: Airway is patent Respiratory effort is even, unlabored, Respiratory jd3 pattern is regular, symmetrical, Denies cough, shortness of breath mg2 05:57 05:56 GI: Abdomen is flat, non-distended, Abd is soft and non tender X 4 quads. Patient jd3 currently denies diarrhea, nausea, vomiting, mg2 05:57 05:56 : No signs and/or symptoms were reported regarding the genitourinary system. mg2jd3 05:57 05:56 EENT: No signs and/or symptoms were reported regarding the EENT system. mg2 jd3 05:57 05:56 Derm: Skin is intact, Skin is dry, Skin is normal, Skin temperature is warm mg2 jd3 05:57 05:56 Musculoskeletal: Circulation, motion, and sensation intact. Range of motion: jd3 intact in all extremities, mg2 05:57 05:56 Inserted saline lock: 20 gauge in right antecubital area, using aseptic jd3 technique. mg2 05:58 05:55 NS 0.9% 1000 ml IV at 1000 ml in right antecubital mg2 jd3
--- NOTE | 2019-11-17 06:36 | EDPHYS ---
Physician Documentation [facility] Name: India yPle Age: 28 yrs Sex: Female : 1990 Arrival Date: 11/17/2019 Time: 05:32 Bed 5 Private MD: Gerard Heredia ED Physician Lionel Montoya HPI: 11/16 05:43 This 28 yrs old Female presents to ER via Unassigned with complaints of rn dehydration. 05:43 Reports recent illness with nausea and diarrhea, had been prescribed abx just before rn this for sinus infection, has been able to drink water and gatorade at home but still feels dehydrated. No longer having nausea/diarrhea. No abd pain. NO blood in stool. No fever. Reports had a neg COVID test for work and doesn't want to get retested. Has had tubal ligation and on control. . Onset: The symptoms/episode began/occurred 1 week(s) ago. Severity of symptoms: At their worst the symptoms were mild in the emergency department the symptoms are unchanged. The patient has experienced a previous episode. The patient has been recently seen by a physician:. 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 - Family history:: not pertinent. - Social history:: Smoking status: Patient denies any tobacco usage or history of. - Hospitalizations: : No recent hospitalization is reported. ROS: 05:43 Constitutional: Negative for fever, chills, and weight loss, Eyes: Negative for injury, rn pain, redness, and discharge, Neck: Negative for injury, pain, and swelling, Cardiovascular: Negative for chest pain, palpitations, and edema, Respiratory: Negative for shortness of breath, cough, wheezing, and pleuritic chest pain, Abdomen/GI: Negative for abdominal pain, nausea, vomiting, diarrhea, and constipation, MS/Extremity: Negative for injury and deformity, Skin: Negative for injury, rash, and discoloration, Neuro: Negative for numbness, tingling, and seizure. Exam: 05:43 Constitutional: This is a well developed, well nourished patient who is awake, alert, rn and in no acute distress. Ambulatory to room without difficulty or distress. Head/Face: Normocephalic, atraumatic. Eyes: Pupils equal round and reactive to light, extra-ocular motions intact. Lids and lashes normal. Conjunctiva and sclera are non-icteric and not injected. Cornea within normal limits. Periorbital areas with no swelling, redness, or edema. Cardiovascular: Regular rate and rhythm. No pulse deficits. Respiratory: Speaking full sentences. No increased work of breathing, no retractions or nasal flaring. Abdomen/GI: soft, non-tender Skin: Warm, dry MS/ Extremity: Pulses equal, no cyanosis. Neuro: Awake and alert, GCS 15, oriented to person, place, time, and situation. Cranial nerves II-XII grossly intact. Motor strength 5/5 in all extremities. Sensory grossly intact. Cerebellar exam normal. Normal gait. Vital Signs: 05:48 BP 115 / 80; Pulse 81; Resp 18; Temp 98.4(O); Pulse Ox 99% on R/A; Weight 69.4 kg (R); lp1 Height 5 ft. 0 in. (152.40 cm); Pain 0/10; 06:25 BP 114 / 77; Pulse 85; Resp 16 S; Pulse Ox 100% on R/A; jd3 05:48 Body Mass Index 29.88 (69.40 kg, 152.40 cm) lp1 MDM: 05:37 Patient medically screened. rn 06:33 Differential Diagnosis dehydration, viral illness, post-viral fatigue. Data reviewed: rn vital signs, nurses notes, and as a result, I will discharge patient. Counseling: I had a detailed discussion with the patient and/or guardian regarding: the historical points, exam findings, and any diagnostic results supporting the discharge/admit diagnosis, the need for outpatient follow up, to return to the emergency department if symptoms worsen or persist or if there are any questions or concerns that arise at home. Special discussion: I discussed with the patient/guardian in detail that at this point there is no indication for admission to the hospital. It is understood, however, that if the symptoms persist or worsen the patient needs to return immediately for re-evaluation. 11/16 06:32 Order name: ISMAEL-Dagmar rn 11/16 05:42 Order name: IV Start; Complete Time: 05:55 rn Administered Medications: 05:54 Drug: NS 0.9% 1000 ml Route: IV; Rate: 1000 ml; Site: right antecubital; jd3 06:53 Follow up: Response: No adverse reaction; IV Status: Completed infusion; IV Intake: jd3 1000ml 06:21 Drug: Tylenol 650 mg Route: PO; jd3 06:58 Follow up: Response: No adverse reaction jd3 Disposition: 11/17/19 06:35 Discharged to Home. Impression: Dehydration, Malaise and fatigue. - Condition is Stable. - Discharge Instructions: Dehydration, Adult. - Medication Reconciliation Form, Thank You Letter, Antibiotic Education, Prescription Opioid Use, Work release form form. - Follow up: Private Physician; When: As needed; Reason: Recheck today's complaints, Re-evaluation by your physician. - Problem is new. - Symptoms have improved. Signatures: Dispatcher [employer] EDMS Lionel Montoya MD MD rn Fara Farrell RN RN lp1 Mike Joel RN RN jd3 Chapito Oh RN RN mg2 Corrections: (The following items were deleted from the chart) 06:35 06:35 11/17/2019 06:35 Discharged to Home. Impression: Dehydration. Condition is rn Stable. Discharge Instructions: Dehydration, Adult. Forms are Medication Reconciliation Form, Thank You Letter, Antibiotic Education, Prescription Opioid Use. Follow up: Private Physician; When: As needed; Reason: Recheck today's complaints, Re-evaluation by your physician. Problem is new. Symptoms have improved. rn 06:57 06:35 11/17/2019 06:35 Discharged to Home. Impression: Dehydration; Malaise and jd3 fatigue. Condition is Stable. Discharge Instructions: Dehydration, Adult. Forms are Medication Reconciliation Form, Thank You Letter, Antibiotic Education, Prescription Opioid Use. Follow up: Private Physician; When: As needed; Reason: Recheck today's complaints, Re-evaluation by your physician. Problem is new. Symptoms have improved. rn
[2019-11-17 07:03] VITALS: TEMP 98.4
[2019-11-17 07:04] VITALS: BP 114/77; O2SAT 100
== END 2019-11-17 06:57 | disposition home or self-care (01) ==
LOC: ER 05:28
DX: E86.0 Dehydration (principal); R53.83 Other fatigue; F41.9 Anxiety disorder, unspecified; Z88.5 Allergy status to narcotic agent
CPT/HCPCS: 96360; 99283; J7030; U0002

== ENCOUNTER 2021-11-15 13:22 | Emergency (ER) | payer SELFPAY ==
--- OUTSIDE RECORDS SUMMARY | 2021-11-15 13:25 | XMS REPORT | Continuity of Care Document ---
:1990 Author Organization [facility] t Address [address] [place] [address] Care Team Providers Name Role Phone MARIA LUZ_NOEL_Rod_G Attending Clinician Unavailable Lab, Adc Fam Pob I Attending Clinician Unavailable Christy Reed Attending Clinician CHRISTY PIERRE Attending Clinician Unavailable MARIA LUZ_NOEL_Rod_G Admitting Clinician Unavailable Payers Payer Name Policy Type Policy Number Effective Date Expiration Date S [place] [id number] 2020 00:00:00 [place] ([place] Problems This patient has no known problems. Allergies, Adverse Reactions, Alerts Allergy Allergy Status Severity Reaction(s) Onset Inactive Treating Comm ents Source Name Type Date Date Clinician NO KNOWN Drug Active Univers ALLERGIE Class ity of [facility] Social History Social Habit Start Date Stop Date Quantity Comments [facility] to [facility] Smoking Status Start Date Stop Date Source Unknown if ever smoked [facility]it y [facility] Medications This patient has no known medications. Procedures This patient has no known procedures. Encounters Start End Encounter Admission Attending Care Care Encounter Source Date/Time Date/Time Type Type Clinicians Facility Department ID 2021-04-14 2021-04-14 Outpatient [id number] PRIV PRIV [id number] [facility] 03:02:00 03:02:00 [facility] [id number] [facility] 2019-10-12 2019-10-12 Laboratory Lab, [facility] Pob I [facility] [id number] Univers 17:22:28 17:42:28 Only Christy Pierre [id number] [facility] [place] [id number] Romeo as Professio [id number] Mi dical [address] 2019-10-12 2019-10-12 Laboratory Lab, [facility] [id number] 17:22:28 17:42:28 Only [facility] [id number] [place] [id number] Professio [phone] [place] [address] [address] 2019-10-12 2019-10-12 Outpatient R IGNACIO [facility] [id number] [facility] 17:20:00 17:20:00 CHRISTY hamm [facility] Results This patient has no known results.
[2021-11-15 13:50] LABS: Urine Blood Trace-intact (Negative); Urine Glucose Negative (Negative); Urine Protein Negative (Negative); Urine pH 8.5 (5.0-7.0)
--- NOTE | 2021-11-15 14:24 | RAD REPORT ---
EXAM DESCRIPTION: CT - [id number] - 11/15/2021 2:12 pm CLINICAL HISTORY: dizziness, syncope, neck pain COMPARISON: No comparisons TECHNIQUE: Axial 5 mm thick images of the head were obtained. Axial 2 mm thick images of the cervic al spine were obtained with sagittal and coronal reconstruction images generated and reviewed. All CT scans are performed using dose optimization technique as appropriate and may include automated exposure control or mA/KV adjustment according to patient size. FINDINGS: No intracranial hemorrhage, mass, edema or acute intracranial finding. No suspicion for ac [place] infarction. No extra-axial fluid collections. Mastoid air cells and paranasal sinuses are clear. No globe or orbit abnormality seen. Cervical body height and alignment are normal. No disk space narrowing. No fracture or acute bony abn ormality. Central canal detail is inherently limited. No paraspinal mass or hematoma. IMPRESSION: Negative CT head examination for acute or significant finding. Negative CT cervical spine examination for acute or significant finding.
--- NOTE | 2021-11-15 14:35 | RAD REPORT ---
EXAM DESCRIPTION: RAD - Chest Single View - 11/15/2021 2:21 pm CLINICAL HISTORY: CHEST PAIN COMPARISON: Single-view chest 06/29/2020 TECHNIQUE: AP portable chest image was obtained 11/15/2021 2:21 pm . FINDINGS: Lungs are clear. Heart and vasculature are normal. No measurable pleural effusion and no p neumothorax. No acute bony abnormality seen. No acute aortic findings suspected. No significant swift e from comparison study. IMPRESSION: No acute cardiopulmonary process.
[2021-11-15 14:39] LABS: Absolute Lymphocytes (CBC) 2.4 K/uL (0.7-4.9); Hematocrit 38.7 % (36.0-45.0); Lymphocytes % 29.9 % (15.3-44.8); MCV 86.8 fL (80-100); MPV 7.9 fL (7.6-11.3); RBC Red Blood Cell Count 4.46 M/uL (3.86-4.86)
[2021-11-15 14:45] LABS: Protime INR 1.02
[2021-11-15 14:56] LABS: ALT/SGPT 43 U/L (12-78); AST/SGOT 22 U/L (15-37); Albumin 3.8 g/dL (3.4-5.0); Alkaline Phosphatase 65 U/L (45-117); BUN Blood Urea Nitrogen 9 mg/dL (7-18); Bicarbonate 27 mmol/L (21-32); Bilirubin Direct 0.1 mg/dL (0-0.2); Bilirubin Total 0.5 mg/dL (0.2-1.0); Creatine Phosphokinase 49 U/L (26-192); Glomerular Filtration Rate 105 ml/min (=/>90); Glucose Level 155 mg/dL (74-106); Lipase 70 U/L (73-393); Magnesium 2.1 mg/dL (1.8-2.4); Potassium 3.7 mmol/L (3.5-5.1); Sodium Level 138 mmol/L (136-145)
[2021-11-15 15:02] LABS: CKMB Creatine Kinase MB < 1.0 ng/mL (1.0-3.6); Troponin High Sensitivity < 3.0 pg/mL (<58.9)
[2021-11-15] MEDS ORDERED: NA CHLORIDE 0.9% 1,000 ML ONE (15:36)
--- NOTE | 2021-11-15 17:02 | ER ---
Nurse's Notes [facility] Name: India Pyle Age: 30 yrs Sex: Female : 1990 Arrival Date: 11/15/2021 Time: 13:25 Bed 24 Private MD: Diagnosis: Chest pain, unspecified;Syncope Presentation: 11/15 13:29 Chief complaint: Patient states: lightheaded since waking up around 0800 today, eh3 syncope, then vomiting. Chest tightness and SOB since then. Coronavirus screen: Vaccine status: Patient reports being unvaccinated. Ebola Screen: No symptoms or risks identified at this time. Initial Sepsis Screen: Does the patient meet any 2 criteria? No. Patient's initial sepsis screen is negative. Does the patient have a suspected source of infection? No. Patient's initial sepsis screen is negative. Risk Assessment: Do you want to hurt yourself or someone else? Patient reports no desire to harm self or others. Onset of symptoms was November 15, 2021 at 08:00. 13:29 Method Of Arrival: Ambulatory [facility] 13:29 Acuity: FAVIO 3 eh3 Triage Assessment: 13:33 General: Appears in no apparent distress. comfortable, Behavior is cooperative, eh3 appropriate for age, anxious. Pain: Complains of pain in anterior aspect of left upper chest and left breast Pain does not radiate. Pain currently is 6 out of 10 on a pain scale. Quality of pain is described as pressure, squeezing, Pain began 0800 this morning Is continuous, Also complains of shortness of breath. 13:35 Neuro: Level of Consciousness is awake, alert, obeys commands, Oriented to person, eh3 place, time, situation. Cardiovascular: Capillary refill < 3 seconds Patient's skin is warm and dry. Respiratory: Airway is patent Respiratory effort is even, unlabored. Historical: - Allergies: 13:33 Demerol; eh3 - Home Meds: 13:33 Lexapro 10 mg Oral tab 1 tab once daily [Active]; eh3 - PMHx: 13:33 Anxiety; eh3 - PSHx: 13:33 Tubal ligation; eh3 - Immunization history:: Adult Immunizations not up to date. - Social history:: Smoking status: Patient denies any tobacco usage or history of. Patient/guardian denies using alcohol, street drugs. Screenin:15 Abuse screen: Denies threats or abuse. Denies injuries from another. Nutritional hb screening: No deficits noted. Tuberculosis screening: No symptoms or risk factors identified. Fall Risk None identified. Assessment: 14:15 General: Appears in no apparent distress. Behavior is calm, cooperative. Pain: Denies hb pain. Neuro: Level of Consciousness is awake, alert, obeys commands, Oriented to person, place, time, situation. Cardiovascular: Patient's skin is warm and dry. Respiratory: Respiratory effort is even, unlabored, Respiratory pattern is regular, symmetrical. GI: No signs and/or symptoms were reported involving the gastrointestinal system. : No signs and/or symptoms were reported regarding the genitourinary system. EENT: No signs and/or symptoms were reported regarding the EENT system. Derm: Skin is pink, warm \T\ dry. Musculoskeletal: No signs and/or symptoms reported regarding the musculoskeletal system. 15:21 Reassessment: Patient appears in no apparent distress at this time. Patient and/or hb family updated on plan of care and expected duration. Pain level reassessed. Patient is alert, oriented x 3, equal unlabored respirations, skin warm/dry/pink. 16:28 Reassessment: Patient appears in no apparent distress at this time. Patient and/or hb family updated on plan of care and expected duration. Pain level reassessed. Patient is alert, oriented x 3, equal unlabored respirations, skin warm/dry/pink. Vital Signs: 13:29 BP 135 / 85; Pulse 83; Resp 18; Temp 98.3; Pulse Ox 99% on R/A; Weight 71.67 kg; Height eh3 5 ft. 0 in. (152.40 cm); Pain 6/10; 14:22 BP 111 / 78 Supine; Pulse 71; hb 14:27 BP 114 / 80 Sitting; Pulse 81; hb 14:32 BP 114 / 85 Standing; Pulse 85; hb 15:22 BP 116 / 79; Pulse 82; Resp 16; Pulse Ox 99% on R/A; hb 16:28 BP 117 / 83; Pulse 64; Resp 15; Pulse Ox 98% on R/A; hb 13:29 Body Mass Index 30.86 (71.67 kg, 152.40 cm) 3 ED Course: 13:25 Patient arrived in ED. mr 13:32 Triage completed. eh3 13:35 Arm band placed on right wrist. eh3 13:41 Juany Mireles FNP-C [facility]. kb 13:41 Dhiraj Montoya MD is Attending Physician. kb 13:52 Urine --Ancillary (enter results) Sent. hb 14:06 Inserted saline lock: 20 gauge 24 gauge antecubital area, using aseptic technique. hb Blood collected. Patient maintains SpO2 saturation greater than 95% on room air. 14:14 CT Head C Spine In Process Unspecified. EDMS 14:14 Autumn Bae, RN is Primary Nurse. hb 14:15 Patient has correct armband on for positive identification. hb 14:22 XRAY Chest (1 view) In Process Unspecified. EDMS 17:16 No provider procedures requiring assistance completed. IV discontinued, intact, hb bleeding controlled, No redness/swelling at site. Administered Medications: 15:34 Drug: NS 0.9% 1000 ml Route: IV; Rate: 1000 ml; Site: right antecubital; hb 17:14 Drug: Ketorolac 15 mg Route: IVP; Site: right antecubital; hb 17:14 Follow up: Response: Medication administered at discharge. hb Medication: 14:15 VIS not applicable for this client. hb Outcome: 17:02 Discharge ordered by . kb 17:16 Discharged to home ambulatory, with family. hb 17:16 Condition: stable 17:16 Discharge instructions given to patient, Instructed on discharge instructions, follow up and referral plans. medication usage, Demonstrated understanding of instructions, follow-up care, medications. 17:17 Patient left the ED. hb Signatures: Dispatcher [employer] EDAK Juany Mireles FNP-C [facility] [employer]ER-Louis Karla Burgess mr Autumn Bae, RN RN hb Mesha Christy eh3 Corrections: (The following items were deleted from the chart) 13:36 13:33 Pain: Complains of pain in anterior aspect of left upper chest and left breast eh3 Pain does not radiate. Pain eh3 14:33 14:26 BP 114 / 80 Sitting; Pulse 81bpm; hb hb
--- NOTE | 2021-11-15 17:02 | EDPHYS ---
Physician Documentation [facility] Name: India Pyle Age: 30 yrs Sex: Female : 1990 Arrival Date: 11/15/2021 Time: 13:25 Bed 24 Private MD: ED Physician Dhiraj Montoya HPI: 11/15 23:37 This 30 yrs old Female presents to ER via Ambulatory with complaints of Chest kb Tightness, Passed Out Prior To Arrival, Dizziness. 23:37 The patient has experienced syncope, lost consciousness. Onset: The symptoms/episode kb began/occurred this morning. Duration: This was a single episode, a few seconds. Context: the episode(s) was witnessed, by family, son, occurred at home, occurred while the patient was sitting, Just prior to the episode the patient experienced lightheadedness. Associated injury: The patient did not suffer any apparent associated injury. Associated signs and symptoms: Pertinent positives: chest pain, dizziness. Current symptoms: dizziness. The patient has not experienced similar symptoms in the past. The patient has not recently seen a physician. Patient reports lightheadedness never she woke up this morning, states she felt like she was going to pass out so she sat down. States she did pass out for a few seconds per son. States she has had a chest pain since that happened. Has been waiting for it to go away but decided to come in because it has not yet.. Historical: - Allergies: 13:33 Demerol; eh3 - Home Meds: 13:33 Lexapro 10 mg Oral tab 1 tab once daily [Active]; eh3 - PMHx: 13:33 Anxiety; eh3 - PSHx: 13:33 Tubal ligation; eh3 - Immunization history:: Adult Immunizations not up to date. - Social history:: Smoking status: Patient denies any tobacco usage or history of. Patient/guardian denies using alcohol, street drugs. ROS: 14:00 Constitutional: Negative for fever, chills, and weight loss. kb 14:00 Cardiovascular: Positive for chest pain, Negative for edema, orthopnea, palpitations, paroxysmal nocturnal dyspnea. 14:00 Neuro: Positive for dizziness, syncope. 14:00 All other systems are negative. Exam: 14:00 Constitutional: This is a well developed, well nourished patient who is awake, alert, kb and in no acute distress. Head/Face: Normocephalic, atraumatic. ENT: Moist Mucous membranes Cardiovascular: Regular rate and rhythm with a normal S1 and S2. No gallops, murmurs, or rubs. No pulse deficits. Respiratory: Respirations even and unlabored. No increased work of breathing. Talking in full sentences Abdomen/GI: Soft, non-tender. No distention Skin: Warm, dry with normal turgor. Normal color. MS/ Extremity: Pulses equal, no cyanosis. Neurovascular intact. Full, normal range of motion. Neuro: Awake and alert, GCS 15, oriented to person, place, time, and situation. Moves all extremities. Normal gait. Psych: Awake, alert, with orientation to person, place and time. Behavior, mood, and affect are within normal limits. 14:00 Eyes: Periorbital structures: appear normal, Pupils: equal, round, and reactive to light and accomodation, Extraocular movements: intact throughout, Nystagmus: 14:01 ECG was reviewed by the Attending Physician. Vital Signs: 13:29 BP 135 / 85; Pulse 83; Resp 18; Temp 98.3; Pulse Ox 99% on R/A; Weight 71.67 kg; Height eh3 5 ft. 0 in. (152.40 cm); Pain 6/10; 14:22 BP 111 / 78 Supine; Pulse 71; hb 14:27 BP 114 / 80 Sitting; Pulse 81; hb 14:32 BP 114 / 85 Standing; Pulse 85; hb 15:22 BP 116 / 79; Pulse 82; Resp 16; Pulse Ox 99% on R/A; hb 16:28 BP 117 / 83; Pulse 64; Resp 15; Pulse Ox 98% on R/A; hb 13:29 Body Mass Index 30.86 (71.67 kg, 152.40 cm) eh3 MDM: 13:41 Patient medically screened. 14:00 Data reviewed: vital signs, nurses notes. Data interpreted: Pulse oximetry: on room air kb is 99 %. Interpretation: normal. 23:33 Counseling: I had a detailed discussion with the patient and/or guardian regarding: the kb historical points, exam findings, and any diagnostic results supporting the discharge/admit diagnosis, lab results, radiology results, the need for outpatient follow up, a family practitioner, to return to the emergency department if symptoms worsen or persist or if there are any questions or concerns that arise at home. 23:39 ED course: Patient offered meclizine prior to discharge but reported that she has a kb prescription for that and will take it when she gets home. 11/15 13:42 Order name: Basic Metabolic Panel; Complete Time: 15:03 kb 11/15 13:42 Order name: CBC with Diff; Complete Time: 14:54 kb 11/15 13:42 Order name: CPK; Complete Time: 15:03 kb 11/15 13:42 Order name: Ckmb; Complete Time: 15:03 kb 11/15 13:42 Order name: Hepatic Function; Complete Time: 15:03 kb 11/15 13:42 Order name: Lipase; Complete Time: 15:03 kb 11/15 13:42 Order name: Magnesium; Complete Time: 15:03 kb 11/15 13:42 Order name: Protime (+inr); Complete Time: 14:54 kb 11/15 13:42 Order name: Ptt, Activated; Complete Time: 14:54 kb 11/15 13:42 Order name: D-Dimer; Complete Time: 14:54 kb 11/15 13:42 Order name: Troponin HS; Complete Time: 15:03 kb 11/15 13:42 Order name: XRAY Chest (1 view); Complete Time: 14:40 kb 11/15 13:50 Order name: Urine Dipstick-Ancillary; Complete Time: 13:51 EDMS 11/15 13:51 Order name: Urine --Ancillary (enter results); Complete Time: 13:58 eb 11/15 13:42 Order name: EKG; Complete Time: 13:43 kb 11/15 13:42 Order name: Cardiac monitoring; Complete Time: 14:14 kb 11/15 13:42 Order name: EKG - Nurse/Tech; Complete Time: 13:52 kb 11/15 13:42 Order name: IV Saline Lock; Complete Time: 14:14 kb 11/15 13:42 Order name: Labs collected and sent; Complete Time: 14:14 kb 11/15 13:42 Order name: NPO; Complete Time: 14:14 kb 11/15 13:42 Order name: O2 Per Protocol; Complete Time: 14:14 kb 11/15 13:42 Order name: O2 Sat Monitoring; Complete Time: 14:14 kb 11/15 13:42 Order name: Urine Dipstick-Ancillary (obtain specimen); Complete Time: 14:14 kb 11/15 13:52 Order name: CT Head C Spine; Complete Time: 14:31 kb 11/15 14:01 Order name: Orthostatics; Complete Time: 14:33 kb EC:01 Rate is 79 beats/min. Rhythm is regular. QRS [place] is Normal. [place] interval is normal at kb 122 msec. QRS interval is normal at 78 msec. QT interval is normal at 444 msec. Administered Medications: 15:34 Drug: NS 0.9% 1000 ml Route: IV; Rate: 1000 ml; Site: right antecubital; hb 17:14 Drug: Ketorolac 15 mg Route: IVP; Site: right antecubital; hb 17:14 Follow up: Response: Medication administered at discharge. hb Disposition: 11/16 09:06 Co-signature as Attending Physician, Dhiraj Montoya MD I agree with the assessment and kdr plan of care. Disposition Summary: 11/15/21 17:02 Discharge Ordered Location: Home kb Condition: Stable kb Diagnosis - Chest pain, unspecified kb - Syncope kb Followup: kb - With: Emergency Department - When: As needed - Reason: Worsening of condition Followup: kb - With: Private Physician - When: 2 - 3 days - Reason: Recheck today's complaints, Continuance of care, Re-evaluation by your physician Discharge Instructions: - Discharge Summary Sheet kb - Nonspecific Chest Pain, Adult, [id number] kb - Syncope, [id number] kb Forms: - Medication Reconciliation Form kb - Thank You Letter kb - Antibiotic Education kb - Prescription Opioid Use kb Signatures: Dispatcher [employer] EDMS Juany Mireles, [facility] JANNIE-Dhiraj Cantu MD MD kdr Baxter, Heather, RN RN Mesha Leger 3
[2021-11-15] MEDS ORDERED: KETOROLAC 30 MG/ML INJ ONE (17:13)
[2021-11-15 18:29] VITALS: TEMP 98.3
[2021-11-15 19:00] VITALS: BP 117/83; O2SAT 98
--- NOTE | 2021-11-16 15:09 | EKG ---
Test Date: 2021-11-15 Test Time: 13:35:34 Advanced Practice Professional: AMBROSE MEASUREMENT RESULTS: Intervals: Rate: 79 VT: 122 QRSD: 78 QT: 388 QTc: 444 Marlin: P: 54 VT: 122 QRS: 58 T: 53 INTERPRETIVE STATEMENTS: Normal sinus rhythm Normal ECG No previous ECG available for comparison Electronically Signed On 11-16-21 15:08:05 CDT by Sulaiman Galeas
== END 2021-11-15 17:17 | disposition home or self-care (01) ==
LOC: ER 13:22
DX: R07.89 Other chest pain (principal); R55 Syncope and collapse; F41.9 Anxiety disorder, unspecified; Z88.5 Allergy status to narcotic agent
CPT/HCPCS: 36415; 70450; 71045; 72125; 80048; 80076; 81003; 81025; 82550; 82553; 83690; 83735; 84484; 85025; 85379; 85610; 85730; 93005; 96374; 99284; J7030

== ENCOUNTER 2024-03-26 09:27 | Emergency (ER) | payer SELFPAY ==
--- OUTSIDE RECORDS SUMMARY | 2024-03-26 09:31 | XMS REPORT | Continuity of Care Document ---
Author Name Unknown Address [address] [facility] [place] [address] [facility] Address [address] [facility] [address] [place] [address] Care Team Providers Care Java Performance Engineer Name Role Phone Madi MCHUGH, Kareem Acuna Primary Care Physician Unava ilable CARLOS Attending Clinician Unavailable Dagoberto_S Attending Clinician Unavailable Tomek_T Attending Clinician Unavailable GC_[email or web address]_G Attending Clinician Unavail able Doctor Unassigned, Hyndman Attending Clinician U navailable Lab, Adc Fam Pob I Attending Clinician Unavailab Christy Villagran Attending Clinician CHRISTY PIERRE Attending Clinician Unavailable RAYMOND_THIERNO Admitting Clinician Unavailable Dagoberto_S Admitting Clinician Unavailable Tomek_T Admitting Clinician Unavailable GC_NOEL_Shelyunier_G Admitting Clinician Unavail able Payers Payer Name Policy Type Policy Number Effective Date Expirati on Date Source [place] [id number] 2020 00:00:00 Problems Condition Name Condition Details Condition Category Status Onset Date Resolution Date Last Treatment Date Treating Clinician Comments Source Kidney stone Kidney Stone Problem Active 2022-04 00:00: 00 [facility] Blood in urine Blood in Urine Problem Active 2022-04 00:00: 00 [facility] Allergies, Adverse Reactions, Alerts Allergy Name Allergy Type Status Severity Reaction(s) Onset Date Inactive Date Treating Clinician Comments Source NO KNOWN ALLERGIE S Drug Class Active [facility] Meperidi ne Allergy to substanc e Active [facility] Social History Social Habit Start Date Stop Date Quantity Comments Source Sexual orientation U [facility] Exposure to SARS-CoV-2 (event) 2019-09-12 00:00:00 2019-10-12 17:24:00 Yes [facility] Sex Ass[birth year] At 1990 00:00:00 1990 00:00:00 [facility] Smoking Status Start Date Stop Date Source Tobacco smoking consumption unknown [facility] Former Smoker [facility] Medications Ordered Medication Name Filled Medication Name Start Date Stop Date Current Medication? Ordering Clinician Indication Dosage Frequency Signature (SIG) Comments Components Source escitalopra m 10 mg tablet TAKE ONE (1) TABLET(S) BY MOUTH DAILY. escitalopra m 10 mg tablet TAKE ONE (1) TABLET(S) BY MOUTH DAILY. No escitalopr am 10 mg tablet TAKE ONE (1) TABLET(S) BY MOUTH DAILY. [facility] Cymbalta 30 mg capsule,del ayed release Take 1 capsule every day by oral route for 14 days. Cymbalta 30 mg capsule,del ayed release Take 1 capsule every day by oral route for 14 days. No 1capsul e(s) Q1D Cymbalta 30 mg capsule,de layed release Take 1 capsule every day by oral route for 14 days. [facility] Cymbalta 60 mg capsule,del ayed release Take 1 capsule every day by oral route. Cymbalta 60 mg capsule,del ayed release Take 1 capsule every day by oral route. No 1capsul e(s) Q1D Cymbalta 60 mg capsule,de layed release Take 1 capsule every day by oral route. [facility] sumatriptan 50 mg tablet Take 1 tablet by oral route as needed, for migraine. may repeat dose x1 after at least 2h sumatriptan 50 mg tablet Take 1 tablet by oral route as needed, for migraine. may repeat dose x1 after at least 2h No 1 sumatripta n 50 mg tablet Take 1 tablet by oral route as needed, for migraine. may repeat dose x1 after at least 2h [facility] Vital Signs Vital Name Observation Time Observation Value Comments S ource BP Diastolic 2024-02-12 00:00:00 75 mm[Hg] [facility] BMI (Body Mass Index) 2024-02-12 00:00:00 32.1 kg/m2 [facility] Height 2024-02-12 00:00:00 60 [in_i] [facility] Body Weight 2024-02-12 00:00:00 2632 [oz_av] [facility] BP Systolic 2024-02-12 00:00:00 111 mm[Hg] [facility] Body Weight 2023-04-11 00:00:00 2502 [oz_av] [facility] Height 2023-04-11 00:00:00 60 [in_i] [facility] BP Systolic 2023-04-11 00:00:00 113 mm[Hg] [facility] BP Diastolic 2023-04-11 00:00:00 80 mm[Hg] [facility] BMI (Body Mass Index) 2023-04-11 00:00:00 30.5 kg/m2 [facility] BP Diastolic 2023-02-05 00:00:00 77 mm[Hg] [facility] Height 2023-02-05 00:00:00 60 [in_i] [facility] BP Systolic 2023-02-05 00:00:00 111 mm[Hg] [facility] Body Weight 2023-02-05 00:00:00 2560 [oz_av] [facility] BMI (Body Mass Index) 2023-02-05 00:00:00 31.2 kg/m2 [facility] Encounters Start Date/Time End Date/Time Encounter Type Admission Type Attending Clinicians Care Facility Care Department Encounter ID Source 2024-02-12 00:00:00 2024-02-12 00:00:00 Therese Izaguirre, TUNNEL MUCKER: [address], [address], [place] [address] , Ph. [facility] [id number] [facility] 2023-05-29 00:00:00 2023-05-29 00:00:00 Outpatient TURNER_FA [facility] [id number] [facility] 2023-04-23 00:00:00 2023-04-23 00:00:00 Outpatient Evans[facility]S [facility] [id number] 2023-04-11 00:00:00 2023-04-11 00:00:00 Outpatient Evans_S [facility] [id number] [facility] 2023-04-11 00:00:00 2023-04-11 00:00:00 JANNIE Carson-C: [address], [address], [place] [address] , Ph. [facility] [id number] [facility] 2023-03-20 00:00:00 2023-03-20 00:00:00 Outpatient Tomek_T [facility] [id number] [facility] 2023-02-20 00:00:00 2023-02-20 00:00:00 Outpatient Tomek_T [facility] [id number] [facility] 2023-02-05 00:00:00 2023-02-05 00:00:00 Outpatient Tomek_T [facility] [id number] [facility] 2023-02-05 00:00:00 2023-02-05 00:00:00 Therese Izaguirre TUNNEL MUCKER: [address], [address], [place] [address] , Ph. [facility] [id number] [facility] 2023-01-22 00:00:00 2023-01-22 00:00:00 Outpatient TURNER_FA [facility] [id number] [place] [facility] 2022-11-20 00:00:2022-11-20 00:00:00 Outpatient Tomek_T [facility] [id number] [facility] 2022-09-05 00:00:00 2022-09-05 00:00:00 Outpatient MILTON Nuno PRIV PRIV [id number] [facility] 2021-04-14 03:02:00 2021-04-14 03:02:00 Outpatient MILTON Nuno [facility] PR[facility] [id number] [facility] 2019-10-13 00:00:00 2019-10-13 00:00:00 Patient Secure Msg Doctor Unassigned, Hyndman [facility] [id number] [facility] 2019-10-12 17:22:28 2019-10-12 17:42:28 Laboratory Only Lab, [facility] [address] [id number] [facility] 2019-10-12 17:22:28 2019-10-12 17:42:28 Laboratory Only Lab, [facility] [address] [id number] 2019-10-12 17:20:00 2019-10-12 17:20:00 [facility] [id number] Results Test Description Test Time Test Comments Results Result Co mments Source [facility] panel - [id number] 11:55:00* Test Item Value Reference Range Interpretation Comme nts Leukocytes (test code = Leukocytes) Negative Nitrite (test code = Nitrite) negative Urobilinogen (test code = Urobilinogen) .2 Protein (test code = Protein) Negative pH (test code = pH) 7.0 Blood (test code = Blood) Moderate Specific [place] (test code = Specific [place]) 1.010 Ketone (test code = Ketone) Negative Bilirubin (test code = Bilirubin) Negative Glucose (test code = Glucose) Negative Appearance (test code = Appearance) Turbid Color (test code = Color) Yellow [facility], [id number] 11:54:00* Test Item Value Reference Range Interpretation Comme nts Test (test code = Test) negative [facility]
[2024-03-26] MEDS ORDERED: NA CHLORIDE 0.9% 1,000 ML ONE (09:54)
[2024-03-26] MEDS ORDERED: ONDANSETRON 4 MG/2 ML VIAL ONE (09:54)
[2024-03-26 10:32] LABS: Absolute Eosinophils 0.1 K/uL (0-0.5); Absolute Lymphocytes (CBC) 0.6 K/uL (0.7-4.9); Absolute Monocytes 0.5 K/uL (0.1-1.3); Absolute Neutrophil 11.2 K/uL (1.8-8.0); Basophils % 0.1 % (0-1.3); Eosinophils % 0.4 % (0-4.4); Hematocrit 40.3 % (36.0-45.0); Hemoglobin 13.2 g/dL (12.0-15.0); Lymphocytes % 4.7 % (15.3-44.8); MCH 29.1 pg (27.0-35.0); MCHC 32.7 g/dL (32.0-36.0); MCV 89.2 fL (80-100); MPV 8.1 fL (7.6-11.3); Monocytes % 3.8 % (3.3-12.3); Platelets 270 thou/uL (152-406); RBC Red Blood Cell Count 4.52 M/uL (3.86-4.86)
[2024-03-26 10:40] LABS: Albumin 3.8 g/dL (3.4-5.0); Albumin/Globulin Ratio 1.2 (1.1-1.8); Anion Gap 9.7 mEq/L (5.0-15.0); Bilirubin Total 0.8 mg/dL (0.2-1.0); Globulin 3.3 g/dL (2.3-3.5); Potassium 3.7 mEq/L (3.5-5.1); Protein, Total 7.1 g/dL (6.4-8.2)
--- NOTE | 2024-03-26 10:44 | RAD REPORT ---
EXAM: Right upper quadrant ultrasound. CLINICAL HISTORY: Abdominal pain COMPARISON: None FINDINGS: A gallstone is not seen. 5 mm gallbladder polyp. Additional smaller polyp present. Gallbladder wall not thickened. Biliary tree normal caliber IMPRESSION: 5 mm gallbladder polyp. Follow-up ultrasound in one year recommended for reevaluation
[2024-03-26 10:45] LABS: Specific Gravity 1.026 (1.005-1.030); Sqamous Epithelial <5 /HPF (None Seen); Urine Bacteria <20 /HPF (<20); Urine Bilirubin NEGATIVE (Negative); Urine Blood Negative (Negative); Urine Clarity Turbid (Clear); Urine Color Yellow (Yellow); Urine Culture Reflex Order NOT NEEDED; Urine Glucose NEGATIVE (Negative); Urine Ketones NEGATIVE (Negative); Urine Microscopic Reflex YN ORDER UMIC; Urine Mucus 1+ /HPF (None Seen); Urine Nitrite NEGATIVE (Negative); Urine Protein TRACE (Negative); Urine RBC <5 /HPF (None Seen); Urine Urobilinogen Normal (Normal); Urine WBC <5 /HPF (<5)
--- NOTE | 2024-03-26 10:50 | ER ---
Nurse's Notes [facility] Name: India Pyle Age: 33 yrs Sex: Female : 1990 Arrival Date: 03/26/2024 Time: 09:27 Bed 20 Private MD: Diagnosis: Nausea, abdominal pain Presentation: 03/26 09:35 Chief complaint: Patient states: nausea after eating since Friday, reports vomiting and aa5 diarrhea today. Pt reports mild pain to RUQ. Coronavirus screen: nausea. Ebola Screen: Patient denies travel to an Ebola-affected area in the 21 days before illness onset. Initial Sepsis Screen: Does the patient meet any 2 criteria? No. Patient's initial sepsis screen is negative. Does the patient have a suspected source of infection? No. Patient's initial sepsis screen is negative. Risk Assessment: Do you want to hurt yourself or someone else? Patient reports no desire to harm self or others. Onset of symptoms was March 2024. 09:35 Method Of Arrival: Ambulatory aa5 09:35 Acuity: FAVIO 3 aa5 Historical: - Allergies: 09:35 Demerol; aa5 - Home Meds: 09:36 Cymbalta 60 mg oral capsule,delayed release (e.c.) daily [Active]; aa5 - PMHx: 09:35 Anxiety; aa5 - PSHx: 09:35 tubal ligation; aa5 - Immunization history:: Adult Immunizations unknown. - Infectious Disease History:: Denies. - Social history:: Smoking status: Patient denies any tobacco usage or history of. Screenin:[address] [facility] ED Fall Risk Assessment (Adult) History of falling in the last 3 months, kc6 including since admission No falls in past 3 months (0 pts) Confusion or Disorientation No (0 pts) Intoxicated or Sedated No (0 pts) Impaired Gait No (0 pts) Mobility Assist Device Used No (0 pt) Altered Elimination No (0 pt) Score/Fall Risk Level 0 - 2 = Low Risk Oriented to surroundings, Maintained a safe environment. Abuse screen: Denies threats or abuse. Denies injuries from another. Nutritional screening: No deficits noted. Tuberculosis screening: No symptoms or risk factors identified. Assessment: 10:12 General: Appears in no apparent distress. comfortable, well groomed, well developed, kc6 Behavior is calm, cooperative, appropriate for age. Pain: Complains of pain in right upper quadrant Quality of pain is described as aching, dull. Neuro: Level of Consciousness is awake, alert, obeys commands, Oriented to person, place, time, situation, Appropriate for age. Cardiovascular: Capillary refill < 3 seconds. Respiratory: Airway is patent Trachea midline Respiratory effort is even, unlabored, Respiratory pattern is regular, symmetrical. GI: Abdomen is flat, non-distended, Abd is soft and non tender X 4 quads. Reports upper abdominal pain, diarrhea, nausea, vomiting. : No signs and/or symptoms were reported regarding the genitourinary system. EENT: No signs and/or symptoms were reported regarding the EENT system. Derm: No signs and/or symptoms reported regarding the dermatologic system. Skin is intact, is healthy with good turgor, Skin is pink, warm \T\ dry. Musculoskeletal: No signs and/or symptoms reported regarding the musculoskeletal system. Circulation, motion, and sensation intact. Capillary refill < 3 seconds, Range of motion: intact in all extremities. 10:57 Reassessment: d/c pending completion of IV fluids. kc6 11:47 Reassessment: Patient appears in no apparent distress at this time. No changes from kc6 previously documented assessment. Patient and/or family updated on plan of care and expected duration. Pain level reassessed. Patient is alert, oriented x 3, equal unlabored respirations, skin warm/dry/pink. Patient states feeling better. Patient states symptoms have improved. Vital Signs: 09:35 BP 118 / 73; Pulse 98; Resp 16 S; Temp 98.9(O); Pulse Ox 98% on R/A; aa5 10:57 BP 127 / 83; Pulse 99; Resp 18 S; Pulse Ox 99% on R/A; kc6 11:47 BP 119 / 83; Pulse 95; Resp 17 S; Pulse Ox 98% on R/A; kc6 ED Course: 09:31 Patient arrived in ED. im 09:33 Irene Sharif MD is Attending Physician. sp3 09:35 Arm band placed on. aa5 09:36 Triage completed. aa5 09:43 Mary Laughlin, THOMAS is Primary Nurse. kc6 10:03 CBC with Diff Sent. nh2 10:03 CMP Sent. nh2 10:03 Lipase Sent. nh2 10:03 Test, Urine Sent. nh2 10:03 Inserted saline lock: 20 gauge in right antecubital area, using aseptic technique. nh2 Blood collected. Flushed with 10 mL NS. 10:11 Patient has correct armband on for positive identification. Bed in low position. Call kc6 light in reach. Side rails up X 1. Pulse ox on. NIBP on. Door closed. Noise minimized. Lights dimmed. Pillow given. 10:32 US Abdomen Limited In Process Unspecified. EDMS 11:47 No provider procedures requiring assistance completed. IV discontinued, intact, kc6 bleeding controlled, No redness/swelling at site. Pressure dressing applied. Administered Medications: 10:11 Drug: Ondansetron IVP 4 mg IVP once; over 2 minutes Route: IVP; Site: right antecubital;kc6 10:32 Follow up: Response: No adverse reaction; Nausea is decreased kc6 10:11 Drug: NS 0.9% IV 1000 ml IV at 1 bolus Per protocol; to be given as a bolus over 60 kc6 minutes Route: IV; Rate: 1 bolus; Site: right antecubital; 11:47 Follow up: Response: No adverse reaction; IV Status: Completed infusion; IV Intake: kc6 1000ml Medication: 11:47 VIS not applicable for this client. kc6 Intake: 11:47 IV: 1000ml; Total: 1000ml. kc6 Outcome: 10:50 Discharge ordered by . [email or web address] 11:47 Discharged to home ambulatory, kc6 11:47 Condition: good 11:47 Discharge instructions given to patient, Instructed on discharge instructions, follow up and referral plans. medication usage, Demonstrated understanding of instructions, follow-up care, medications, Prescriptions given X 1, 11:48 Patient left the ED. kc6 Signatures: Dispatcher [employer] EDSD Kelly Dias, RN RN aa5 Irene Sharif MD MD sp3 Mary Laughlin RN RN kc6 Oliva Kan Jr, Kunal nh2
--- NOTE | 2024-03-26 10:51 | EDPHYS ---
Physician Documentation [facility] Name: India Pyle Age: 33 yrs Sex: Female : 1990 Arrival Date: 03/26/2024 Time: 09:27 Bed 20 Private MD: ED Physician Irene Sharif HPI: 03/26 10:04 This 33 yrs old Female presents to ER via Ambulatory with complaints of Nausea, sp3 abdominal pain. 10:04 33-year-old female with history of anxiety without any other somatic medical problems sp3 now presents to the ED with chief complaint nausea, abdominal cramping particularly in the right upper quadrant for 3 to 4 days. She denies any significant diarrhea, bleeding, back pain, symptoms, TAX ACCOUNTANT symptoms, fever, URI symptoms, chest pain, shortness of breath, known sick contacts, travel history, prolonged immobilization, syncope, near syncope, rash or any other signs or symptoms on ROS at this time.. Historical: - Allergies: 09:35 Demerol; aa5 - Home Meds: 09:36 Cymbalta 60 mg oral capsule,delayed release (e.c.) daily [Active]; aa5 - PMHx: 09:35 Anxiety; aa5 - PSHx: 09:35 tubal ligation; aa5 - Immunization history:: Adult Immunizations unknown. - Infectious Disease History:: Denies. - Social history:: Smoking status: Patient denies any tobacco usage or history of. ROS: 10:05 Constitutional: Negative for fever, chills, and weight loss, Eyes: Negative for injury, sp3 pain, redness, and discharge, Neck: Negative for injury, pain, and swelling, Cardiovascular: Negative for chest pain, palpitations, and edema, Respiratory: Negative for shortness of breath, cough, wheezing, and pleuritic chest pain, Back: Negative for injury and pain, : Negative for injury, bleeding, discharge, and swelling, MS/Extremity: Negative for injury and deformity, Skin: Negative for injury, rash, and discoloration, Neuro: Negative for headache, weakness, numbness, tingling, and seizure, Psych: Negative for depression, anxiety, suicide ideation, homicidal ideation, and hallucinations, Allergy/Immunology: Negative for hives, rash, and allergies, Endocrine: Negative for neck swelling, polydipsia, polyuria, polyphagia, and marked weight changes, 10:05 All other systems are negative, Exam: 10:05 Constitutional: This is a well developed, well nourished patient who is awake, alert, sp3 and in no acute distress. Head/Face: Normocephalic, atraumatic. Eyes: Pupils equal round and reactive to light, extra-ocular motions intact. Lids and lashes normal. Conjunctiva and sclera are non-icteric and not injected. Cornea within normal limits. Periorbital areas with no swelling, redness, or edema. ENT: Nares patent. No nasal discharge, no septal abnormalities noted. External auditory canals are clear. Oropharynx with no redness, swelling, or masses, exudates, or evidence of obstruction, uvula midline. Mucous membranes moist. Neck: Trachea midline, no thyromegaly or masses palpated, and no cervical lymphadenopathy. Supple, full range of motion without nuchal rigidity, or vertebral point tenderness. No Meningismus. Chest/axilla: Normal chest wall appearance and motion. Nontender with no deformity. No lesions are appreciated. Cardiovascular: Regular rate and rhythm with a normal S1 and S2. No gallops, murmurs, or rubs. Normal PMI, no JVD. No pulse deficits. Respiratory: Lungs have equal breath sounds bilaterally, clear to auscultation and percussion. No rales, rhonchi or wheezes noted. No increased work of breathing, no retractions or nasal flaring. Back: No spinal tenderness. No costovertebral tenderness. Full range of motion. Skin: Warm, dry with normal turgor. Normal color with no rashes, no lesions, and no evidence of cellulitis. MS/ Extremity: Pulses equal, no cyanosis. Neurovascular intact. Full, normal range of motion. Neuro: Awake and alert, GCS 15, oriented to person, place, time, and situation. Cranial nerves II-XII grossly intact. Motor strength 5/5 in all extremities. Sensory grossly intact. Cerebellar exam normal. Normal gait. Psych: Awake, alert, with orientation to person, place and time. Behavior, mood, and affect are within normal limits. 10:05 Abdomen/GI: Mild right upper quadrant abdominal pain to palpation without peritoneal signs, rebound or guarding. Negative Paz sign. No CVA tenderness or lower abdominal pain noted. Vital signs are normal., Vital Signs: 09:35 BP 118 / 73; Pulse 98; Resp 16 S; Temp 98.9(O); Pulse Ox 98% on R/A; aa5 10:57 BP 127 / 83; Pulse 99; Resp 18 S; Pulse Ox 99% on R/A; kc6 11:47 BP 119 / 83; Pulse 95; Resp 17 S; Pulse Ox 98% on R/A; kc6 MDM: 09:33 Medical Screening Exam initiated sp3 10:05 Data reviewed: vital signs, nurses notes, lab test result(s), radiologic studies. ED sp3 course: 33-year-old female with right upper quadrant abdominal pain and nausea. Differential diagnosis includes viral illness, gastritis, biliary pathology, biliary colic, cholecystitis, pancreatitis, among others. Clinically I am not highly suspicious for aortic pathology, ACS, sepsis, shock, pathology, TAX ACCOUNTANT pathology, or any other critical process at this time. Workup will include ultrasound of the abdomen pelvis, general labs, UA, and general supportive care with IV fluids and ondansetron as needed. Disposition pending workup and patient course.. 10:49 ED course: Full workup negative including ultrasound. All labs normal. Will discharge sp3 on ondansetron ODT.. 03/26 09:45 Order name: CBC with Diff sp3 03/26 09:45 Order name: CMP; Complete Time: 10:44 sp3 03/26 09:45 Order name: Lipase; Complete Time: 10:44 sp3 03/26 09:45 Order name: Test, Urine; Complete Time: 10:48 sp3 03/26 09:45 Order name: Urinalysis w/ reflexes; Complete Time: 10:48 sp3 03/26 09:45 Order name: US Abdomen Limited; Complete Time: 10:44 sp3 03/26 09:45 Order name: IV Saline Lock; Complete Time: 10:03 sp3 03/26 09:45 Order name: Labs collected and sent; Complete Time: 10:03 sp3 Administered Medications: 10:11 Drug: Ondansetron IVP 4 mg IVP once; over 2 minutes Route: IVP; Site: right antecubital;kc6 10:32 Follow up: Response: No adverse reaction; Nausea is decreased kc6 10:11 Drug: NS 0.9% IV 1000 ml IV at 1 bolus Per protocol; to be given as a bolus over 60 kc6 minutes Route: IV; Rate: 1 bolus; Site: right antecubital; 11:47 Follow up: Response: No adverse reaction; IV Status: Completed infusion; IV Intake: kc6 1000ml Disposition Summary: 03/26/24 10:50 Discharge Ordered Notes: Location: Home sp3 Condition: Stable sp3 Diagnosis - Nausea, abdominal pain sp3 Followup: sp3 - With: Private Physician - When: Upon discharge from the Emergency Department - Reason: Continuance of care Discharge Instructions: - Discharge Summary Sheet sp3 - Nausea and Vomiting, Adult sp3 Forms: - Medication Reconciliation Form sp3 - Antibiotic Education sp3 - Prescription Opioid Use sp3 - Patient Portal Instructions sp3 - Leadership Thank You Letter sp3 Prescriptions: - ondansetron 8 mg Oral Tablet,disintegrating - take 1 tablet ORAL route every 12 hours; 15 tablet; Refills: 0, Product sp3 Selection Permitted Signatures: Dispatcher [employer] Kelly Schmitz RN RN aa5 Irene Sharif MD MD sp3 Mary Laughlin RN RN kc6 Corrections: (The following items were deleted from the chart) 09:46 09:46 CBC+H.LAB.BRZ ordered. EDMS EDMS 09:46 09:46 COMPREHENSIVE METABOLIC PANEL+C.LAB.BRZ ordered. EDMS EDMS 09:46 09:46 LIPASE+C.LAB.BRZ ordered. EDMS EDMS 09:46 09:46 Test, Urine+UC.LAB.BRZ ordered. EDMS EDMS 09:46 09:46 Urinalysis+U.LAB.BRZ ordered. EDMS EDMS 09:46 09:46 Abdomen Limited+US.RAD.BRZ ordered. EDMS EDMS
[2024-03-26 12:04] VITALS: TEMP 98.9
[2024-03-26 12:07] LABS: Band Neutrophils 1 % (0-1); Differential Total Cells Count 100; Eosinophils 1 % (0-3); Lymphocytes 6 % (15-42); Monocytes 4 % (0-10); Platelet Estimate ADEQ; Segmented Neutrophils 88 % (40-80)
[2024-03-26 12:08] LABS: Blood Morphology Comment NOT SEEN (NOT SEEN)
[2024-03-26 12:09] VITALS: BP 119/83; O2SAT 98
== END 2024-03-26 11:48 | disposition home or self-care (01) ==
LOC: ER 09:27
DX: R11.0 Nausea (principal); R10.11 Right upper quadrant pain
CPT/HCPCS: 36415; 76705; 80053; 81001; 81025; 83690; 85025; 96361; 96374; 99284; J2405; J7030

== ENCOUNTER 2024-11-25 02:09 | Emergency (ER) | payer OTHER, SELFPAY ==
--- OUTSIDE RECORDS SUMMARY | 2024-11-25 02:14 | XMS REPORT | Continuity of Care Document ---
Author Name Unknown Address [address] [facility] [address] [place] [address] [facility] Address [address] [facility] [address] [place] [address] Care Team Providers Care Valet Service Attendant Name Role Phone Madi MCHUGH, Kareem Acuna Primary Care Physician THERESE Arce Attending Clinician Unavailable Dagoberto_S Attending Clinician Unavailable Tomek_T Attending Clinician Unavailable GC_[email or web address]_G Attending Clinician Unavail able Doctor Unassigned, Kersey Attending Clinician [facility], Adc Fam Pob I Attending Clinician Unavailab Christy Villagran Attending Clinician CHRISTY PIERRE Attending Clinician Unavailable ED SHANKS Attending Clinician Unavailab theresa Paez Admitting Clinician Unavailable Tomek_T Admitting Clinician Unavailable MARIA LUZ_NOEL_Shelyunier_G Admitting Clinician Unavail able Payers Payer Name Policy Type Policy Number Effective Date Expirati on Date Source [place] [id number] 2020 00:00:00 Problems Condition Name Condition Details [...] NO KNOWN ALLERGIE S Drug Class Active [facility] ity [facility] Meperidi ne Allergy to substanc e Active [facility] Social History Social Habit Start Date Stop Date Quantity Comments Source Sexual orientation [facility] Exposure to SARS-CoV-2 (event) 2019-09-12 00:00:00 2019-10-12 17:24:00 Yes [facility] Sex Assigned At 1990 00:00:00 1990 00:00:00 [facility] Smoking Status Start Date Stop Date Source Former Smoker [facility] Tobacco smoking consumption unknown [facility] Medications Ordered Medication Name Filled Medication Name Start Date Stop Date Current Medication? Ordering Clinician Indication Dosage Frequency Signature (SIG) Comments Components Source Medrol (Bello) 4 mg tablets in a dose pack Take 1 dose pk by oral route as directed. Medrol (Bello) 4 mg tablets in a dose pack Take 1 dose pk by oral route as directed. No 1dose pk(s) Medrol (Bello) 4 mg tablets in a dose pack Take 1 dose pk by oral route as directed. [facility] ondansetron 8 mg disintegrat ing tablet DISSOLVE ONE (1) TABLET(S) BY MOUTH EVERY TWELVE HOURS. ondansetron 8 mg disintegrat ing tablet DISSOLVE ONE (1) TABLET(S) BY MOUTH EVERY TWELVE HOURS. No ondansetro n 8 mg disintegra ting tablet DISSOLVE ONE (1) TABLET(S) BY MOUTH EVERY TWELVE HOURS. [facility] Zithromax Z-Bello 250 mg tablet TAKE 2 TABLETS (500 MG) BY ORAL ROUTE ONCE DAILY FOR 1 DAY THEN 1 TABLET (250 MG) BY ORAL ROUTE ONCE DAILY FOR 4 DAYS Zithromax Z-Bello 250 mg tablet TAKE 2 TABLETS (500 MG) BY ORAL ROUTE ONCE DAILY FOR 1 DAY THEN 1 TABLET (250 MG) BY ORAL ROUTE ONCE DAILY FOR 4 DAYS No Zithromax Z-Bello 250 mg tablet TAKE 2 TABLETS (500 MG) BY ORAL ROUTE ONCE DAILY FOR 1 DAY THEN 1 TABLET (250 MG) BY ORAL ROUTE ONCE DAILY FOR 4 DAYS [facility] duloxetine 60 mg capsule,del ayed release TAKE ONE (1) CAPSULE(S) BY MOUTH DAILY. duloxetine 60 mg capsule,del ayed release TAKE ONE (1) CAPSULE(S) BY MOUTH DAILY. No duloxetine 60 mg capsule,de layed release TAKE ONE (1) CAPSULE(S) BY MOUTH DAILY. [facility] temazepam 7.5 mg capsule Take 1 capsule every day by oral route. temazepam 7.5 mg capsule Take 1 capsule every day by oral route. No 1capsul e(s) Q1D temazepam 7.5 mg capsule Take 1 capsule every day by oral route. [facility] ondansetron 4 mg disintegrat ing tablet DISSOLVE ONE (1) TABLET ON THE TONGUE EVERY 8 HOURS NEEDED FOR NAUSEA AND VOMITING. ondansetron 4 mg disintegrat ing tablet DISSOLVE ONE (1) TABLET ON THE TONGUE EVERY 8 HOURS NEEDED FOR NAUSEA AND VOMITING. No ondansetro n 4 mg disintegra ting tablet DISSOLVE ONE (1) TABLET ON THE TONGUE EVERY 8 HOURS NEEDED FOR NAUSEA AND VOMITING. [facility] rizatriptan 10 mg disintegrat ing tablet TAKE ONE (1) TABLET BY MOUTH EVERY DAY NEEDED. rizatriptan 10 mg disintegrat ing tablet TAKE ONE (1) TABLET BY MOUTH EVERY DAY NEEDED. No rizatripta n 10 mg disintegra ting tablet TAKE ONE (1) TABLET BY MOUTH EVERY DAY NEEDED. [facility] Vital Signs Vital Name Observation Time Observation Value Comments S ource Height 2024-11-15 00:00:00 60 [in_i] [facility] BP Systolic 2024-05-13 00:00:00 115 mm[Hg] [facility] Body Weight 2024-05-13 00:00:00 2626 [oz_av] [facility] BP Diastolic 2024-05-13 00:00:00 77 mm[Hg] [facility] BMI (Body Mass Index) 2024-05-13 00:00:00 32.1 kg/m2 [facility] Height 2024-05-13 00:00:00 60 [in_i] [facility] BMI (Body Mass Index) 2024-04-26 00:00:00 31.8 kg/m2 [facility] BP Diastolic 2024-04-26 00:00:00 84 mm[Hg] [facility] BP Systolic 2024-04-26 00:00:00 124 mm[Hg] [facility] Body Weight 2024-04-26 00:00:00 2608 [oz_av] [facility] Height 2024-04-26 00:00:00 60 [in_i] [facility] BP Diastolic 2024-02-12 00:00:00 75 mm[Hg] [facility] BMI (Body Mass Index) 2024-02-12 00:00:00 32.1 kg/m2 [facility] Height 2024-02-12 00:00:00 60 [in_i] [facility] Body Weight 2024-02-12 00:00:00 2632 [oz_av] [facility] BP Systolic 2024-02-12 00:00:00 111 mm[Hg] [facility] Height 2023-04-11 00:00:00 60 [in_i] [facility] BP Systolic 2023-04-11 00:00:00 113 mm[Hg] [facility] BP Diastolic 2023-04-11 00:00:00 80 mm[Hg] [facility] BMI (Body Mass Index) 2023-04-11 00:00:00 30.5 kg/m2 [facility] Body Weight 2023-04-11 00:00:00 2502 [oz_av] [facility] BP Diastolic 2023-02-05 00:00:00 77 mm[Hg] [facility] Height 2023-02-05 00:00:00 60 [in_i] [facility] BP Systolic 2023-02-05 00:00:00 111 mm[Hg] [facility] Body Weight 2023-02-05 00:00:00 2560 [oz_av] [facility] BMI (Body Mass Index) 2023-02-05 00:00:00 31.2 kg/m2 [facility] Procedures Procedure Date / Time Performed Performing Clinicia n Source unlisted imaging order 2024-05-13 00:00:00 [facility] unlisted imaging order 2024-04-26 00:00:00 [facility] Tubal Ligation [facility] Encounters Start Date/Time End Date/Time Encounter Type Admission Type Attending [facility] Facility Care Department Encounter ID Source 2024-11-15 00:00:00 2024-11-15 00:00:00 Therese Izaguirre, STRIPE MARKER: [address], [place] [address] , Ph. [facility] [id number] [facility] 2024-05-17 07:44:00 2024-05-17 07:44:00 Outpatient THERESE CISSE [facility] [id number] [facility] 2024-05-13 12:27:00 2024-05-13 12:27:00 Outpatient THERESE CISSE [facility] [id number] [facility] 2024-05-13 00:00:00 2024-05-13 00:00:00 Therese Izaguirre, STRIPE MARKER: [address], [place] [address] , Ph. [facility] [id number] [facility] 2024-04-26 11:38:00 2024-04-26 11:38:00 Outpatient THERESE CISSE [facility] [id number] [facility] 2024-04-26 00:00:00 2024-04-26 00:00:00 Therese Izaguirre, STRIPE MARKER: [address], [place] [address] , Ph. [facility] [id number] [facility] 2024-02-12 00:00:00 2024-02-12 00:00:00 Therese Izaguirre, STRIPE MARKER: [address], [place] [address] , Ph. [facility] [id number] [facility] 2023-04-11 00:00:00 2023-04-11 00:00:00 BRIDGER CarsonP-C: [address], [place] [address] , Ph. [facility] [id number] [facility] 2023-02-05 00:00:00 2023-02-05 00:00:00 Therese Izaguirre, STRIPE MARKER: [address], [place] [address] , Ph. [facility] [id number] [facility] 2019-10-13 00:00:00 2019-10-13 00:00:00 Patient Secure Ms Doctor Unassigned, Kersey [facility] 1.114 [id number] [facility] 2019-10-12 17:22:28 2019-10-12 17:42:28 Laboratory Only Lab, [facility] 1.114 [id number] [facility] 2019-10-12 17:22:28 2019-10-12 17:42:28 Laboratory Only Lab, [facility] [address] .114 [id number] 2019-10-12 17:20:00 2019-10-12 17:20:00 Outpatient R CHRISTY PIERRE [facility] [id number] [facility] 2008-04-08 14:20:00 2008-04-08 20:28:00 Emergency ER ED SHANKS [facility] [id number] [facility] Results Test Description Test Time Test Comments Results Result Co mments Source [facility] W Auto Differential panel - [id number] 00:00:00 * Test Item Value Reference Range Interpretation Comme nts white blood count (test code = white blood count) 8.7 K/uL 4.0-11.5 red blood count (test code = red blood count) 4.43 M/uL 3.80-5.20 hemoglobin (test code = hemoglobin) 12.9 g/dL 10.5-15.7 hematocrit (test code = hematocrit) 39.9 % 34.0-50.0 mean corpuscular volume (jevon t code = mean corpuscular volume) 90.1 fL 86.0-100.0 mean corpuscular hemoglobin (test code = mean corpuscular hemoglobin) 29.1 pg 26.2-33.4 mean corpuscular HGB conc (t est code = mean corpuscular HGB conc) 32.3 g/dL 30.0-34.0 red cell distribution width (test code = red cell distribution width) 12.4 % 12.0-15.5 platelet count (test code = platelet count) 298 K/uL 165-450 mean platelet volume (test c ode = mean platelet volume) 9.6 fL 9.4-12.6 neutrophils % (test code = neutrophils %) 53.6 % 44.4-80.1 Ig% (test code = Ig%) 0.2 % 0.0-0.4 lymphocyte% (test code = lymphocyte%) 39.2 % 10.0-50.0 mono % (test code = mono %) 5.4 % 3.6-12.0 eos % (test code = eos %) 1.1 % 0.0-5.4 basophil % (test code = baso tiffanie %) 0.5 % 0.1-1.2 absolute neutrophil count (t est code = absolute neutrophil count) 4.68 K/uL 1.56-6.13 Ig# (test code = Ig#) 0.02 K/uL 0.00-0.03 lymph # (test code = lymph #) 3.43 K/uL 1.18-3.74 mono # (test code = mono #) 0.47 K/uL 0.24-0.86 eos # (test code = eos #) 0.10 K/uL 0.04-0.36 basophil # (test code = baso tiffanie #) 0.04 K/uL 0.01-0.08 NRBC% (test code = NRBC%) 0 /100 WBC 0-0.2 NRBC# (test code = NRBC#) 0 K/uL [facility] - [id number] 16:09:00* Test Item Value Reference Range Interpretation Comme nts Leukocytes (test code = Leukocytes) Small Nitrite (test code = Nitrite) negative Urobilinogen (test code = Urobilinogen) .2 Protein (test code = Protein) Negative pH (test code = pH) 7.0 Blood (test code = Blood) Moderate Specific Corn[place] (test code = Specific [place]) 1.010 Ketone (test code = Ketone) Negative Bilirubin (test code = Bilirubin) Negative Glucose (test code = Glucose) Negative Appearance (test code = Appearance) Slightly Cloudy Color (test code = Color) Yellow [facility]dipstick) panel - [id number] 11:55:00* Test Item Value Reference Range Interpretation Comme nts Leukocytes (test code = Leukocytes) Negative Nitrite (test code = Nitrite) negative Urobilinogen (test code = Urobilinogen) .2 Protein (test code = Protein) Negative pH (test code = pH) 7.0 Blood (test code = Blood) Moderate Specific [place] (test code = Specific [place]) 1.010 Ketone (test code = Ketone) Negative Bilirubin (test code = Bilirubin) Negative Glucose (test code = Glucose) Negative Appearance (test code = Appearance) Turbid Color (test code = Color) Yellow [facility], [id number] 11:54:00* Test Item Value Reference Range Interpretation Comme nts Test (test code = Test) negative [facility]
[2024-11-25] MEDS ORDERED: METOCLOPRAMIDE 10 MG/2mL INJ ONE (02:52)
[2024-11-25] MEDS ORDERED: DIPHENHYDRAMINE 50 MG/ML VIAL ONE (02:52)
[2024-11-25] MEDS ORDERED: NA CHLORIDE 0.9% 1,000 ML ONE (02:52)
[2024-11-25] MEDS ORDERED: METHYLPREDNISOLONE 125 MG INJ ONE (02:52)
[2024-11-25] MEDS ORDERED: WATER FOR INJ,STERILE 10 ML ONE (02:53)
--- NOTE | 2024-11-25 03:52 | ER ---
Nurse's Notes [facility] Name: India Pyle Age: 33 yrs Sex: Female : 1990 Arrival Date: 11/25/2024 Time: 02:09 Bed 8 Private MD: Diagnosis: Migraine, unspecified, not intractable, without status migrainosus Presentation: 11/25 02:35 Chief complaint: Patient states: c/o of headache starting earlier on in the day, al5 migraine became constant around 1900. pain progressively got worse at around 2300, also c/o nausea. attempted tricks at home to help with the migraine with no relief. Coronavirus screen: At this time, the client does not indicate any symptoms associated with coronavirus-19. Ebola Screen: No symptoms or risks identified at this time. Initial Sepsis Screen: Does the patient meet any 2 criteria? No. Patient's initial sepsis screen is negative. Does the patient have a suspected source of infection? No. Patient's initial sepsis screen is negative. Risk Assessment: Do you want to hurt yourself or someone else? Patient reports no desire to harm self or others. Onset of symptoms was November 24, 2024. 02:35 Method Of Arrival: Ambulatory al5 02:35 Acuity: FAVIO 3 al5 Triage Assessment: 02:38 Headache History: The patient has had previous headaches and this one is more severe al5 than previous episodes. General: Appears in no apparent distress. uncomfortable, Behavior is calm, cooperative. Pain: Complains of pain in head Pain currently is 10 out of 10 on a pain scale. Pain began 0 yesterday Also complains of nausea, blurring around eyes. EENT: No signs and/or symptoms were reported regarding the EENT system. Neuro: Level of Consciousness is awake, alert, obeys commands, Oriented to person, place, time, situation, Reports headache in entire. Cardiovascular: Capillary refill < 3 seconds Patient's skin is warm and dry. Respiratory: Airway is patent Respiratory effort is even, unlabored, Respiratory pattern is regular, symmetrical. GI: No signs and/or symptoms were reported involving the gastrointestinal system. : No signs and/or symptoms were reported regarding the genitourinary system. Derm: Skin is intact, is healthy with good turgor, Skin is pink, warm \T\ dry. normal. Musculoskeletal: Circulation, motion, and sensation intact. Range of motion: intact in all extremities. 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 - Infectious Disease History:: Denies. - Family history:: not pertinent. - Social history:: Smoking status: Patient denies any tobacco usage or history of. - Hospitalizations: : No recent hospitalization is reported. Screenin:47 [facility] ED Fall Risk Assessment (Adult) History of falling in the last 3 months, al5 including since admission No falls in past 3 months (0 pts) Confusion or Disorientation No (0 pts) Intoxicated or Sedated No (0 pts) Impaired Gait No (0 pts) Mobility Assist Device Used No (0 pt) Altered Elimination No (0 pt) Score/Fall Risk Level 0 - 2 = Low Risk Oriented to surroundings, Maintained a safe environment, Hourly rounding (assess needs \T\ fall precautionary measures) done. Abuse screen: Denies threats or abuse. Denies injuries from another. Nutritional screening: No deficits noted. Tuberculosis screening: No symptoms or risk factors identified. Assessment: 02:47 Reassessment: see triage assessment. al5 03:58 Reassessment: Patient appears in no apparent distress at this time. Patient and/or al5 family updated on plan of care and expected duration. Pain level reassessed. Patient is alert, oriented x 3, equal unlabored respirations, skin warm/dry/pink. Patient states feeling better. Patient states symptoms have improved. Vital Signs: 02:35 BP 140 / 102; Pulse 74; Resp 17; Temp 98.1; Pulse Ox 97% on R/A; Weight 77.11 kg; al5 Height 5 ft. 0 in. ; Pain 10/10; 03:00 BP 109 / 78; Pulse 79; Resp 16; Pulse Ox 97% on R/A; al5 03:30 BP 125 / 84; Pulse 74; Resp 17; Pulse Ox 98% on R/A; al5 04:00 BP 101 / 71; Pulse 74; Resp 16; Pulse Ox 96% on R/A; al5 02:35 Body Mass Index 33.20 (77.11 kg, 152.4 cm) al5 02:35 Pain Scale: Adult al5 Norton Coma Score: 03:50 Eye Response: spontaneous(4). Motor Response: obeys commands(6). Verbal Response: rn oriented(5). Total: 15. ED Course: 02:13 Patient arrived in ED. [email or web address] 02:14 Lionel Montoya MD is Attending Physician. rn 02:34 Nimco Chaudhary RN is Primary Nurse. al5 02:38 Triage completed. al5 02:38 Arm band placed on right wrist. Patient placed in the treatment room, in view of staff al5 members, on pulse oximetry. 02:47 Patient has correct armband on for positive identification. Bed in low position. Call al5 light in reach. Side rails up X 1. Provided Education on: plan of care. 02:47 No provider procedures requiring assistance completed. al5 02:57 Inserted saline lock: 20 gauge in right antecubital area, using aseptic technique. [id number] Blood collected. Flushed with 10 mL NS. 04:31 IV discontinued, intact, bleeding controlled, No redness/swelling at site. Pressure al5 dressing applied. Administered Medications: 03:13 Drug: NS 0.9% IV 1000 ml IV at 1000 ml once; to be given as a bolus over 60 minutes al5 Route: IV; Rate: 1000 ml; Site: right antecubital; 04:31 Follow up: Response: No adverse reaction; IV Status: Completed infusion; IV Intake: al5 1000ml 03:13 Drug: metoCLOPramide IVP 10 mg IVP once; over 1 to 2 minutes Route: IVP; Site: right al5 antecubital; 04:31 Follow up: Response: No adverse reaction; Marked relief of symptoms al5 03:13 Drug: diphenhydrAMINE IVP 25 mg IVP once Route: IVP; Site: right antecubital; al5 04:31 Follow up: Response: No adverse reaction; Marked relief of symptoms al5 03:13 Drug: MethylPrednisoLONE IVP 125 mg IVP once Route: IVP; Site: right antecubital; al5 04:31 Follow up: Response: No adverse reaction; Marked relief of symptoms al5 Medication: 02:47 VIS not applicable for this client. al5 Intake: 04:31 IV: 1000ml; Total: 1000ml. al5 Outcome: 03:51 Discharge ordered by . rn 04:31 Discharged to home ambulatory, with significant other, al5 04:31 Condition: good 04:31 Discharge instructions given to patient, Instructed on discharge instructions, follow up and referral plans. Demonstrated understanding of instructions, follow-up care, 04:31 Patient left the ED. al5 Signatures: Lionel Montoya MD MD rn Jeffries, Jennifer [email or web address] Nimco Chaudhary RN RN al5 Breana Caban [id number]
--- NOTE | 2024-11-25 03:52 | EDPHYS ---
Physician Documentation [facility] Name: India Pyle Age: 33 yrs Sex: Female : 1990 Arrival Date: 11/25/2024 Time: 02:09 Bed 8 Private MD: ED Physician Lionel Montoya HPI: 11/25 02:37 This 33 yrs old Female presents to ER via Unassigned with complaints of Headache, rn Nausea. 02:37 Patient reports is having migraine headache. Has history of migraines. Her normal rn migraine medication and [id number] medication were not helping at home. Otherwise the characteristics of this headache are identical to previous migraines. No head injury. No fever or chills. No focal neurological deficit. Patient reports gets blurred vision with her migraines and is having intermittent blurred vision at this time. No diplopia.. 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 - Infectious Disease History:: Denies. - Family history:: not pertinent. - Social history:: Smoking status: Patient denies any tobacco usage or history of. - Hospitalizations: : No recent hospitalization is reported. ROS: 02:37 Constitutional: Negative for fever, chills, and weight loss, ENT: Negative for injury, rn pain, and discharge, Neck: Negative for injury, pain, and swelling, Cardiovascular: Negative for chest pain, palpitations, and edema, Respiratory: Negative for shortness of breath, cough, wheezing, and pleuritic chest pain, Abdomen/GI: Positive for nausea, negative for abdominal pain or vomiting Neuro: Positive for headache Exam: 02:37 Constitutional: This is a well developed, well nourished patient who is awake, alert, rn and in no acute distress. Wearing sunglasses Neck: No neck stiffness or meningismus Cardiovascular: Regular rate and rhythm. No pulse deficits. Respiratory: No increased work of breathing, no retractions or nasal flaring. Skin: Warm, dry Neuro: Awake and alert, GCS 15 Vital Signs: 02:35 BP 140 / 102; Pulse 74; Resp 17; Temp 98.1; Pulse Ox 97% on R/A; Weight 77.11 kg; al5 Height 5 ft. 0 in. ; Pain 10/10; 03:00 BP 109 / 78; Pulse 79; Resp 16; Pulse Ox 97% on R/A; al5 03:30 BP 125 / 84; Pulse 74; Resp 17; Pulse Ox 98% on R/A; al5 04:00 BP 101 / 71; Pulse 74; Resp 16; Pulse Ox 96% on R/A; al5 02:35 Body Mass Index 33.20 (77.11 kg, 152.4 cm) al5 02:35 Pain Scale: Adult al5 Roberto Carlos Coma Score: 03:50 Eye Response: spontaneous(4). Motor Response: obeys commands(6). Verbal Response: rn oriented(5). Total: 15. MDM: 02:14 Medical Screening Exam initiated rn 03:50 Differential diagnosis: cluster headache, hypertensive headache, migraine, tension rn headache, trigeminal neuralgia, vasomotor headache. Data reviewed: vital signs, nurses notes, and as a result, I will discharge patient. Care significantly affected by the following chronic conditions: Migraines. Counseling: I had a detailed discussion with the patient and/or guardian regarding the historical points, exam findings, and any diagnostic results supporting the discharge/admit diagnosis, the need for outpatient follow up, to return to the emergency department if symptoms worsen or persist or if there are any questions or concerns that arise at home. Special discussion: I discussed with the patient/guardian in detail that at this point there is no indication for admission to the hospital. It is understood, however, that if the symptoms persist or worsen the patient needs to return immediately for re-evaluation. Based on the history and exam findings, there is no indication for further emergent testing or inpatient evaluation. I discussed with the patient/guardian the need to see the neurologist for further evaluation of the symptoms. I discussed with the patient/guardian the need to see the primary care provider for further evaluation of the symptoms. ED course: Patient doing much better, sleeping comfortably. Reports headache is nearly gone. Patient requesting to be discharged so she can go home to sleep.. 11/25 02:35 Order name: IV Start; Complete Time: 02:57 rn Administered Medications: 03:13 Drug: NS 0.9% IV 1000 ml IV at 1000 ml once; to be given as a bolus over 60 minutes al5 Route: IV; Rate: 1000 ml; Site: right antecubital; 04:31 Follow up: Response: No adverse reaction; IV Status: Completed infusion; IV Intake: al5 1000ml 03:13 Drug: metoCLOPramide IVP 10 mg IVP once; over 1 to 2 minutes Route: IVP; Site: right al5 antecubital; 04:31 Follow up: Response: No adverse reaction; Marked relief of symptoms al5 03:13 Drug: diphenhydrAMINE IVP 25 mg IVP once Route: IVP; Site: right antecubital; al5 04:31 Follow up: Response: No adverse reaction; Marked relief of symptoms al5 03:13 Drug: MethylPrednisoLONE IVP 125 mg IVP once Route: IVP; Site: right antecubital; al5 04:31 Follow up: Response: No adverse reaction; Marked relief of symptoms al5 Disposition Summary: 11/25/24 03:51 Discharge Ordered Notes: Location: Home rn Problem: new rn Symptoms: have improved rn Condition: Stable rn Diagnosis - Migraine, unspecified, not intractable, without status migrainosus rn Followup: rn - With: Private Physician - When: As needed - Reason: Recheck today's complaints, Re-evaluation by your physician Discharge Instructions: - Discharge Summary Sheet rn - Migraine Headache rn Forms: - Medication Reconciliation Form rn - Antibiotic production internship - Prescription Opioid Use rn - Patient Portal Instructions rn - Leadership Thank You Letter rn Signatures: Lionel Montoya MD MD rn Langhorst, Amanda, RN RN al5
[2024-11-25 04:41] VITALS: TEMP 98.1
[2024-11-25 04:46] VITALS: BP 101/71; O2SAT 96
== END 2024-11-25 04:31 | disposition home or self-care (01) ==
LOC: ER 02:09
DX: G43.909 Migraine, unspecified, not intractable, without status migrainosus (principal)
CPT/HCPCS: 96361; 96375; 96374; 99284; J2765; J1200; J2919; J7030

== ENCOUNTER 2025-01-01 00:43 | Emergency (ER) | payer OTHER ==
[2025-01-01 01:55] LABS: Absolute Lymphocytes (CBC) 3.9 K/uL (0.7-4.9); Hematocrit 37.8 % (36.0-45.0); Hemoglobin 12.9 g/dL (12.0-15.0); MCH 29.6 pg (27.0-35.0); MCHC 34.2 g/dL (32.0-36.0); MCV 86.5 fL (80-100); MPV 7.7 fL (7.6-11.3); Nucleated RBC Absolute Count 0.0 (0-0); Nucleated Red Blood Cells % 0.0 % (0-0); RBC Red Blood Cell Count 4.37 M/uL (3.86-4.86); White Blood Count 9.60 thou/uL (4.3-10.9)
[2025-01-01 02:13] LABS: ALT/SGPT 35.0 U/L (13-56); AST/SGOT 19.0 U/L (15-37); Albumin 3.9 g/dL (3.4-5.0); Albumin/Globulin Ratio 1.2 (1.1-1.8); Alkaline Phosphatase 79.0 U/L (45-117); Anion Gap 9.6 mEq/L (5.0-15.0); BUN Blood Urea Nitrogen 14.0 mg/dL (7-18); Globulin 3.2 g/dL (2.3-3.5); Glucose Level 104.0 mg/dL (74-106); Lipase 26.0 U/L (13-75); Potassium 3.6 mEq/L (3.5-5.1)
--- NOTE | 2025-01-01 02:31 | EDPHYS ---
Physician Documentation [facility] Name: India Pyle Age: 34 yrs Sex: Female : 1990 Arrival Date: 01/01/2025 Time: 00:43 Bed 13 Private MD: ED Physician Rajat Salmeron HPI: 01/01 02:35 This 34 yrs old Female presents to ER via Ambulatory with complaints of Abdominal Pain. tt7 02:35 Onset: The symptoms/episode began/occurred gradually, today. Severity of symptoms: Pain tt7 is currently a 8 / 10. The patient has experienced similar episodes in the past, multiple times, and the symptoms today are exactly the same, to previous . The patient has been recently seen by a physician: with similar presenting complaints. Pain is in the right upper quadrant, associated with nausea and vomiting, patient was seen in our ED approximately 2 weeks ago and received laboratory studies, CT imaging of the abdomen/pelvis, and right upper quadrant ultrasound, workup demonstrated a 5 mm gallbladder polyp, no other acute findings, was referred to a specialist to scheduled cholecystectomy for this Friday but patient unable to have surgery due to finances and cost, patient took a Zofran and Phenergan suppository prior to arrival. Historical: - Allergies: 00:48 Demerol; ha1 - Home Meds: 00:48 Cymbalta 60 mg Oral capsule daily for Anxiety with Depression [Active]; Lexapro 10 mg ha1 Oral tab 1 tab once daily [Active]; - PMHx: 00:48 Anxiety; Hypertensive disorder; ha1 - PSHx: 00:48 tubal ligation; ha1 - Immunization history:: Adult Immunizations up to date. - Infectious Disease History:: Denies. - Social history:: Smoking status: Patient denies any tobacco usage or history of. ROS: 02:39 Constitutional: negative for fever. Cardiovascular: negative for chest pain. tt7 Respiratory: negative for shortness of breath. MS/Extremity: negative for injury and deformity. Skin: negative for rash. Neuro: negative for focal weakness. 02:39 Abdomen/GI: Positive for abdominal pain, nausea and vomiting, Negative for diarrhea, Exam: 02:39 Constitutional: vital signs reviewed, well appearing. Head/Face: normocephalic, tt7 atraumatic. Eyes: no conjunctival injection, anicteric sclerae. ENT: mucus membranes moist. Neck: trachea midline, no JVD, no meningismus. Chest/axilla: normal chest wall appearance and motion, nontender, no crepitus. Cardiovascular: regular rate and rhythm, no murmurs, no rubs, no lower extremity edema. Respiratory: normal respiratory effort, no accessory muscle use, lungs CTAB. Abdomen/GI: soft, mild epigastric and right upper quadrant tenderness, no guarding or rebound, negative Paz's sign, no McBurney point tenderness. Back: normal ROM. Skin: warm, dry, intact, normal turgor, normal color, no rash. MS/ Extremity: normal ROM of extremities, no gross deformities. Neuro: alert and oriented with appropriate mental status, normal speech, follows commands, no focal neurologic deficits. Psych: appropriate mood and affect. Vital Signs: 00:48 BP 110 / 79; Pulse 90; Resp 18 S; Temp 97.8(T); Pulse Ox 100% on R/A; Weight 76.2 kg; ha1 Height 5 ft. 0 in. ; Pain 8/10; 02:04 BP 112 / 72; Pulse 75; Resp 18; Pulse Ox 97% on R/A; kt5 02:30 BP 102 / 66; Pulse 76; Resp 18; Temp 98.3; Pulse Ox 99% ; Pain 0/10; kt5 00:48 Body Mass Index 32.81 (76.20 kg, 152.4 cm) ha1 00:48 Pain Scale: Adult ha1 02:30 Pain Scale: Adult kt5 MDM: 00:57 Medical Screening Exam initiated tt7 02:40 Differential Diagnosis Pancreatitis, biliary colic, gastritis, GERD, , tt7 cholecystitis, choledocholithiasis. Data reviewed: vital signs, nurses notes, old medical records, lab test result(s), Beta HCG: CBC, electrolytes, hepatic panel. Test considered but Not performed: Other Details I considered repeating the patient's right upper quadrant ultrasound but did not feel this was necessary as patient has reassuring laboratory studies, negative Paz sign, and total resolution of symptoms after medication. She also had a right upper quadrant ultrasound performed 2 weeks ago which demonstrated a gallbladder polyp but no findings of cholecystitis. She has outpatient cholecystectomy scheduled for Friday.. Historians other than the Patient: Spouse/Significant Other: . Care significantly affected by the following Social Determinants of Health: Poor access to healthcare and/or lack of insurance. Counseling: I had a detailed discussion with the patient and/or guardian regarding the historical points, exam findings, and any diagnostic results supporting the discharge/admit diagnosis, lab results, the need for outpatient follow up, to return to the emergency department if symptoms worsen or persist or if there are any questions or concerns that arise at home. ED course: Well-appearing 34-year-old female with upper abdominal pain associated with nausea and vomiting, vital signs are stable, abdominal exam is overall benign, negative Paz sign, I ordered laboratory studies and give dose of droperidol for her symptoms, her laboratory studies are overall reassuring, I reassessed the patient after droperidol and she is able to tolerate oral intake, nausea and vomiting totally resolved, pain is resolved, I reviewed her recent ER visit from 2 weeks ago and she had a reassuring CT and ultrasound, I considered repeating the ultrasound here but did not feel it was necessary given her resolution of symptoms and reassuring laboratory studies and reassuring physical exam. She already has an outpatient cholecystectomy scheduled for Friday. I provided her with a referral to a acid strength inspector. Emergency department evaluation is reassuring. I do not suspect life-threatening process. Patient is stable and not in need of emergent medical intervention. I had a detailed discussion with the patient regarding the historical points, exam findings, emergency department evaluation, diagnostic results, and the discharge diagnosis. I discussed outpatient management of the patient's condition. I discussed the need for outpatient follow-up with primary care and relevant specialist. I discussed return precautions including the need to return to the ED if symptoms do not improve, worsen, or if there are any questions or concerns that arise at home. The patient was discharged in stable condition. 01/01 00:58 Order name: CBC with Diff; Complete Time: :01/01 00:58 Order name: CMP; Complete Time: 01/01 00:58 Order name: Lipase; Complete Time: :01/01 00:58 Order name: Test, Serum; Complete Time: 02:01/01 00:58 Order name: IV Saline Lock; Complete Time: 02:01/01 00:58 Order name: Labs collected and sent; Complete Time: 02:08 tt7 Administered Medications: 02:03 Drug: Droperidol IVP 1.25 mg IVP once Route: IVP; Site: right antecubital; kt5 03:12 Follow up: Response: No adverse reaction; Pain is decreased kt5 Disposition: 02:44 Co-signature as Attending Physician, Rajat Salmeron DO. tt7 Disposition Summary: 01/01/25 02:30 Discharge Ordered Notes: Location: Home tt7 Problem: chronic tt7 Symptoms: are resolved tt7 Condition: Stable tt7 Diagnosis - Upper abdominal pain, unspecified tt7 - Nausea with vomiting, unspecified tt7 Followup: tt7 - With: Emergency Department - When: As needed - Reason: Followup: tt7 - With: Freedom Booker MD - When: 2 - 3 days - Reason: Recheck today's complaints Discharge Instructions: - Discharge Summary Sheet tt7 - Abdominal Pain, Adult tt7 - Nausea and Vomiting, Adult tt7 Forms: - Medication Reconciliation Form tt7 - Antibiotic Education tt7 - Prescription Opioid Use tt7 - Patient Portal Instructions tt7 - Leadership Thank You Letter tt7 Prescriptions: - promethazine 12.5 mg Rectal suppository - insert 1 suppository RECTAL route every 8 hours as needed for nausea and tt7 vomiting; 20 suppository; Refills: 0, Product Selection Permitted - Compazine 10 mg Oral Tablet - take 1 tablet ORAL route every 8 hours As needed; 20 tablet; Refills: 0, tt7 Product Selection Permitted Signatures: Dispatcher [employer] EDTory Marquez RN RN ha1 Dahlia Aldridge RN RN kt5 Rajat Salmeron DO DO tt7 Corrections: (The following items were deleted from the chart) 00:59 00:58 CBC+H.LAB.BRZ ordered. EDMS EDMS 00:59 00:58 COMPREHENSIVE METABOLIC PANEL+C.LAB.BRZ ordered. EDMS EDMS 00:59 00:58 LIPASE+C.LAB.BRZ ordered. EDMS EDMS 00:59 00:59 TEST, SERUM+SC.LAB.BRZ ordered. EDMS EDMS
--- NOTE | 2025-01-01 02:31 | ER ---
Nurse's Notes [facility] Name: India Pyle Age: 34 yrs Sex: Female : 1990 Arrival Date: 01/01/2025 Time: 00:43 Bed 13 Private MD: Diagnosis: Upper abdominal pain, unspecified;Nausea with vomiting, unspecified Presentation: 01/01 00:48 Chief complaint: Patient states: RIGHT UPPER QUADRANT ABDOMINAL PAIN, NAUSEA AND ha1 VOMITING. 00:48 Coronavirus screen: Client denies travel out of the [place] in the last 14 days. Ebola ha1 Screen: No symptoms or risks identified at this time. Initial Sepsis Screen: Does the patient meet any 2 criteria? No. Patient's initial sepsis screen is negative. Does the patient have a suspected source of infection? No. Patient's initial sepsis screen is negative. Risk Assessment: Do you want to hurt yourself or someone else? Patient reports no desire to harm self or others. Onset of symptoms was January 01, 2025. 00:48 Method Of Arrival: Ambulatory ha1 00:48 Acuity: FAVIO 3 ha1 Triage Assessment: 00:48 General: Appears uncomfortable, Behavior is calm, cooperative. Pain: Complains of pain ha1 in right upper quadrant Pain currently is 8 out of 10 on a pain scale. Quality of pain is described as throbbing. Neuro: Level of Consciousness is awake, alert, obeys commands, Oriented to person, place, time, situation. Cardiovascular: Capillary refill < 3 seconds Patient's skin is warm and dry. Respiratory: Airway is patent Respiratory effort is even, unlabored, Respiratory pattern is regular, symmetrical. GI: Abdomen is round non-distended, obese, Reports upper abdominal pain, nausea, vomiting. : No signs and/or symptoms were reported regarding the genitourinary system. Musculoskeletal: Circulation, motion, and sensation intact. Range of motion: intact in all extremities. Historical: - Allergies: 00:48 Demerol; ha1 - Home Meds: 00:48 Cymbalta 60 mg Oral capsule daily for Anxiety with Depression [Active]; Lexapro 10 mg ha1 Oral tab 1 tab once daily [Active]; - PMHx: 00:48 Anxiety; Hypertensive disorder; ha1 - PSHx: 00:48 tubal ligation; ha1 - Immunization history:: Adult Immunizations up to date. - Infectious Disease History:: Denies. - Social history:: Smoking status: Patient denies any tobacco usage or history of. Screenin:23 [facility] ED Fall Risk Assessment (Adult) History of falling in the last 3 months, kt5 including since admission No falls in past 3 months (0 pts) Confusion or Disorientation No (0 pts) Intoxicated or Sedated No (0 pts) Impaired Gait No (0 pts) Mobility Assist Device Used No (0 pt) Altered Elimination No (0 pt) Score/Fall Risk Level 0 - 2 = Low Risk Oriented to surroundings, Maintained a safe environment. Abuse screen: Denies threats or abuse. Nutritional screening: No deficits noted. Tuberculosis screening: No symptoms or risk factors identified. Assessment: :23 General: Appears in no apparent distress. uncomfortable. Pain: Complains of pain in kt5 right upper quadrant Pain does not radiate. Pain currently is 8 out of 10 on a pain scale. Quality of pain is described as sharp, Pain began years ago. Is intermittent. Neuro: No deficits noted. Lamar Agitation-Sedation Scale (RASS): 0 - Alert and Calm Level of Consciousness is awake, alert, obeys commands, Oriented to person, place, time. Cardiovascular: No deficits noted. Denies chest pain, Heart tones S1 S2 present Capillary refill < 3 seconds Clubbing of nail beds is absent JVD is absent. Respiratory: No deficits noted. Airway is patent Trachea midline Respiratory effort is even, unlabored, Respiratory pattern is regular, symmetrical. GI: No deficits noted. Abdomen is flat, non-distended, Bowel sounds present X 4 quads. Abd is soft X 4 quads Abdomen is tender to palpation in right upper quadrant Reports diarrhea, nausea, vomiting. : No deficits noted. No signs and/or symptoms were reported regarding the genitourinary system. Derm: No deficits noted. Skin is intact, Skin is dry, Skin is pink, warm \T\ dry. normal. Musculoskeletal: No deficits noted. No signs and/or symptoms reported regarding the musculoskeletal system. 02:30 Reassessment: Patient appears in no apparent distress at this time. Patient and/or kt5 family updated on plan of care and expected duration. Pain level reassessed. Patient is alert, oriented x 3, equal unlabored respirations, skin warm/dry/pink. Patient denies pain at this time. Patient states feeling better. Patient states symptoms have improved. 03:14 Reassessment: Patient and/or family updated on plan of care and expected duration. Pain ha1 level reassessed. Patient is alert, oriented x 3, equal unlabored respirations, skin warm/dry/pink. Patient states feeling better. Patient states symptoms have improved. Vital Signs: 00:48 BP 110 / 79; Pulse 90; Resp 18 S; Temp 97.8(T); Pulse Ox 100% on R/A; Weight 76.2 kg; ha1 Height 5 ft. 0 in. ; Pain 8/10; 02:04 BP 112 / 72; Pulse 75; Resp 18; Pulse Ox 97% on R/A; kt5 02:30 BP 102 / 66; Pulse 76; Resp 18; Temp 98.3; Pulse Ox 99% ; Pain 0/10; kt5 00:48 Body Mass Index 32.81 (76.20 kg, 152.4 cm) ha1 00:48 Pain Scale: Adult ha1 02:30 Pain Scale: Adult kt5 ED Course: 00:44 Patient arrived in ED. mr 00:57 Rajat Salmeron DO is Attending Physician. tt7 00:57 Triage completed. ha1 01:23 No provider procedures requiring assistance completed. Inserted saline lock: 20 gauge kt5 in right antecubital area, using aseptic technique. Blood collected. Flushed with 10 mL NS. 01:23 Bed in low position. Call light in reach. Side rails up X 1. Adult w/ patient. Client kt5 placed on continuous cardiac and pulse oximetry monitoring. NIBP monitoring applied. Door closed. Noise minimized. Warm blanket given. Pillow given. 01:36 Dahlia Aldridge, THOMAS is Primary Nurse. kt5 02:03 Test, Serum Sent. kt5 02:08 CMP Sent. kt5 02:08 Lipase Sent. kt5 02:30 Freedom Booker MD is Referral Physician. tt7 03:15 IV discontinued, intact, bleeding controlled, No redness/swelling at site. Pressure ha1 dressing applied. 03:15 Arm band placed on right wrist. ha1 03:18 Provided Education on: MEDICATION ADMINISTRATION . ha1 Administered Medications: 02:03 Drug: Droperidol IVP 1.25 mg IVP once Route: IVP; Site: right antecubital; kt5 03:12 Follow up: Response: No adverse reaction; Pain is decreased kt5 Medication: 01:23 VIS not applicable for this client. kt5 Outcome: 02:30 Discharge ordered by . tt7 03:15 Discharged to home ambulatory, with family, ha1 03:15 Condition: stable 03:15 Discharge instructions given to patient, family, Instructed on discharge instructions, follow up and referral plans. medication usage, Demonstrated understanding of instructions, follow-up care, medications, Prescriptions given X 2, 03:18 Patient left the ED. ha1 Signatures: Karla Burgess, Reg Reg mr Tory Costa, RN RN ha1 Dahlia Aldridge, THOMAS RN kt5 Rajat Salmeron, DO tt7
[2025-01-01 03:26] VITALS: BP 102/66; TEMP 98.3; O2SAT 99
== END 2025-01-01 03:18 | disposition home or self-care (01) ==
LOC: ER 00:43
DX: R10.11 Right upper quadrant pain (principal); R11.2 Nausea with vomiting, unspecified; I10 Essential (primary) hypertension; Z98.51 Tubal ligation status; Z88.5 Allergy status to narcotic agent
CPT/HCPCS: 85025; 36415; 84703; 83690; 80053; 96374; 99284; J1790